=== PATIENT | female | born 1965 | race Caucasian/White ===

== ENCOUNTER 2018-07-02 14:08 | Inpatient (IN) ==
[~2018-07-02 14:08] MED LIST: *HR* Etomidate 20 MG/10 ML AMPUL IVP ONE; *HR* Midazolam HCl 5 MG/5 ML VIAL IVP ONE
[2018-07-02] MEDS ORDERED: 0.9 % Sodium Chloride 1,000 ML IVC ONE ×2 (14:34→15:38)
[2018-07-02] MEDS ORDERED: *HR* FentaNYL (PF) 100 MCG/2 ML VIAL IVP ONE ×2 (14:34→19:22)
[2018-07-02] MEDS ORDERED: Isovue-370 500 ML INFUS..BTL IV ONE ×2 (14:35→18:06)
[2018-07-02 14:56] LABS: Basophils % 0.2 %; Hematocrit 43.6 % (35.3-44.9); Hemoglobin 14.7 g/dL (11.5-15.4); Immature Granulocytes % 1.3 % (0-4); Lymphocytes # 0.6 K/mcL (0.6-4.6); Lymphocytes % 2.6 %; Mean Corpuscular HGB Conc 33.7 g/dL (31.6-35.5); Mean Corpuscular Hemoglobin 29.7 pg (28.0-33.3); Mean Corpuscular Volume 88.1 fL (83.0-100.0); Mean Platelet Volume 10.6 fL (9.4-12.4); Monocytes # 1.4 K/mcL (0.0-1.3); Monocytes % 6.3 %; Neutrophils # 19.6 K/mcL (1.6-8.9); Platelet Count 241 K/mcL (140-400); Red Blood Count 4.95 M/mcL (3.82-4.97); Red Cell Distribution Width 13.1 % (11.5-14.5); Segmented Neutrophils % 89.6 %
[2018-07-02 15:02] LABS: INR 1.8; Prothrombin Time 20.2 Seconds (9.4-12.1)
[2018-07-02 15:05] LABS: Activated Partial Thrombo Time 30.3 Seconds (26.0-36.0)
[2018-07-02] MEDS ORDERED: Ibuprofen 600 MG TABLET PO ONE (15:05)
[2018-07-02 15:15] LABS: Troponin I < 0.03 ng/mL (< 0.04)
[2018-07-02 15:23] LABS: Alanine Aminotransferase 11 Units/L (7-52); Albumin/Globulin Ratio 1.4 (1.1-2.2); Alkaline Phosphatase 65 Units/L (34-104); Aspartate Amino Transferase 12 Units/L (13-39); BUN/Creatinine Ratio 16 (6-26); Bilirubin,Direct 0.2 mg/dL (0.0-0.2); Bilirubin,Indirect 0.5 mg/dL (0.0-1.2); Bilirubin,Total 0.7 mg/dL (0.3-1.0); Blood Urea Nitrogen 12 mg/dL (6-20); Calcium 9.3 mg/dL (8.6-10.3); Carbon Dioxide 23 mEq/L (23-29); Chloride 99 mEq/L (98-107); Globulin 2.8 g/dL (2.4-3.5); Glucose 199 mg/dL (70-105); Magnesium 1.7 mg/dL (1.6-2.6); Osmolality,Calculated 271 (280-300); Potassium 4.2 mEq/L (3.5-5.1); Sodium 128 mEq/L (136-145); Total Protein 6.8 g/dL (6.4-8.9); eGFR For Non-African Americans > 60 (> 60)
--- NOTE | 2018-07-02 15:24 | Emergency Department Note ---
Disposition Clinical Impression: Pulmonary nodules, Hypophosphatemia, Hyponatremia CAP (community acquired pneumonia) Qualifiers: Laterality: left Lung location: lower lobe of lung Qualified Code(s): J18.1 - Lobar pneumonia, unspecified organism Sepsis Qualifiers: Sepsis type: sepsis due to unspecified organism Qualified Code(s): A41.9 - Sepsis, unspecified organism Disposition: Admitted As Inpatient Condition: Fair Referrals: Jad Rodarte DO [Primary Care Provider] - Time of Disposition: 18:00 Chest Pain HPI - General Chief Complaint: ED Chest Pain Stated Complaint: Chest pain; SUSY Time Seen by Provider: 07/02/18 14:20 Source: patient Mode of arrival: ambulatory Limitations: no limitations Vital Signs Reviewed: Yes Nursing Notes Reviewed: Yes - History of Present Illness HPI Narrative: 52-year-old female history of COPD presents to the emergency department via EMS for chest pain and dyspnea. Patient states over the past 24 hours she is been experiencing severe chest pain that also affects her back and her abdomen. She reports a recent fall and was diagnosed with a possible rib injury. She was seen and evaluated here in the emergency department without any imaging or findings concerning for fracture. Complains of a sharp pain in the left chest wall with racing of the heart. Denies any lightheadedness or syncope. Associated shortness of breath nausea no vomiting. She also has a productive yellow cough over the past week. She denies any diaphoresis. No history of cardiac ischemic disease. Patient was immediately evaluated in the trauma resuscitation bay as she was significantly tachycardic 150s. It appears to be sinus tachycardia. She meets SIRS criteria, sepsis workup initiated. Pt complaint: chest pain Severity scale (1-10): 7 - Related Data Previous Rx's Medication Instructions Recorded Gentamicin OPTH Soln 2 drop BOTH EYES QID 5 Days bottle 06/19/15 Allergies Allergy/AdvReac Type Severity Reaction Status Date / Time aspirin [ASA] AdvReac Hives Verified 07/02/18 14:13 caffeine AdvReac Fever Verified 07/02/18 14:13 All systems ED: reviewed and negative except as stated. Review of Systems: As Per HPI Constitutional: Reports: fever. Denies: chills, weakness ENT ED: Denies: congestion Cardiovascular: Reports: chest pain, palpitations, dyspnea on exertion Respiratory: Reports: cough, dyspnea Gastrointestinal: Denies: abdominal pain, nausea, vomiting Genitourinary: Denies: dysuria Musculoskeletal: Reports: back pain Integumentary: Denies: rash, abrasion Neurological: Denies: headache Psychiatric: Reports: anxiety. Denies: depression Chest Pain PMH - Past Medical History Medical history: Reports: COPD, fibromyalgia, other Surgical history: Reports: no surgical history Psychiatric history: Reports: no psych history [employer] history: Reports: bilateral tubal ligation - Social History Smoking Status: Current every day smoker Alcohol use: Reports: none Drug use: Reports: none Physical Exam - General Limitations: no limitations General appearance: alert, anxious - Head Head exam: atraumatic, normocephalic, normal inspection - Eye Eye exam: Present: normal appearance, PERRL, EOMI - ENT ENT exam: normal exam, normal oropharynx, mucous membranes moist - Neck Neck exam: Present: normal inspection, full ROM, trachea midline - Chest Chest inspection: Present: normal inspection, symmetric chest wall rise, tenderness (Left chest wall) - Respiratory Respiratory exam: Present: respiratory distress - Expanded Respiratory Exam Location: rales: Left, rhonchi: Left - Cardiovascular Cardiovascular exam: Present: normal rhythm, tachycardia, normal heart sounds. Absent: systolic murmur, diastolic murmur - Expanded Cardiovascular Exam Peripheral pulses: 2+: radial (R), radial (L) - Abdominal Exam Abdominal exam: Present: soft, Non-Tender, normal bowel sounds. Absent: te nderness, distention, guarding, rebound, rigidity - Extremities Exam Extremities exam: Present: normal inspection, full ROM, normal capillary refill. Absent: tenderness, pedal edema - Back Exam Back exam: Present: normal inspection, full ROM. Absent: tenderness - Neurological Exam Neurological exam: Present: alert, oriented X3 - Psychiatric Psychiatric exam: Present: normal affect, anxious - Skin Skin exam: Present: warm, dry, intact, normal color. Absent: rash, cyanosis, diaphoresis Course Course Narrative: Patient reports left chest pain with productive cough and shortness of breath over the past week. She is significantly tachycardic and mildly hypoxic. EKG shows sinus tachycardia. She has crackles to the left lung field. Concern for sepsis likely pneumonia. Sepsis workup initiated. Given the significant tachycardia will also obtain CTA chest for evaluation for pulm embolism. - Reevaluation(s) Reevaluation #1: Patient has significant leukocytosis. Chest x-ray shows opacities in the left upper lobe concerning for pneumonia versus cancer. Patient has a history of smoking and recently has come down. Her lactate is normal 1.4. Patient does not meet severe sepsis or septic shock. She has been fluid resuscitated with 1 L normal saline. She has some electrolyte abnormalities including sodium 128 and phosphorus of 1. Will replete her phosphorous IV. Her CT scan of the chest did not reveal pulmonary embolism and confirmed left upper lobe pneumonia. She also has pulmonary nodules and thyroid nodule that patient has been made aware of. Will treat her for community acquired pneumonia with azithromycin and ceftriaxone. Impression is hyponatremia, hypophosphotemia, sepsis secondary to community acquired pneumonia Reevaluation #2: Patient initially had describes some pruritus. The azithromycin infusion was stopped. She then gradually developed hives. She is now complaining of some difficulty in breathing. Her blood pressure has come down to systolic 90s. Concerning for anaphylactic shock patient will be continued on IV fluids and administered IM epinephrine. Her allergies include aspirin and caffeine. She did admit to taking ibuprofen prior to arrival here. No other drug administration given. Time: 19:06 - Consultations Consultation #1: Spoke with on-call hospitalist kar Pruitt to admit for sepsis secondary to community acquired pneumonia, hypophosphatemia and hyponatremia. No further orders at this time Time: 18:00 Vital Signs Temperature 99.9 F H 07/02/18 14:11 Pulse Rate 151 07/02/18 14:11 Respiratory Rate 22 07/02/18 14:11 Blood Pressure 110/71 07/02/18 14:11 O2 Sat by Pulse Oximetry 94 07/02/18 14:11 Temperature 98.2 F 07/02/18 17:46 Pulse Rate 118 07/02/18 19:27 Respiratory Rate 22 07/02/18 19:27 Blood Pressure 99/58 07/02/18 19:27 O2 Sat by Pulse Oximetry 96 07/02/18 19:27 Oxygen Delivery Oxygen Delivery Nasal Cannula Chest Pain - MDM Narrative Medical decision making narrative: Patient was discussed with my attending physician who agrees with ED management and final disposition. They independently evaluated the patient. Please refer to their attestation to this encounter for additional information. This note was generated by [employer] voice recognition software and as a result grammatical or spelling errors may occur using this program. - Medical Records Medical records reviewed: Yes I reviewed the patient's medical records. - Lab Data Lab results reviewed: Yes I reviewed the patient's lab results. Result diagrams: 07/02/18 14:42 07/02/18 14:42 Lab Results 07/02/18 07/02/18 07/02/18 Range/Units 14:29 14:42 14:42 WBC 21.9 H (4.3-11.1) K/mcL RBC 4.95 (3.82-4.97) M/mcL Hgb 14.7 (11.5-15.4) g/dL Hct 43.6 (35.3-44.9) % MCV 88.1 (83.0-100.0) fL MCH 29.7 (28.0-33.3) pg MCHC 33.7 (31.6-35.5) g/dL RDW 13.1 (11.5-14.5) % Plt Count 241 (140-400) K/mcL MPV 10.6 (9.4-12.4) fL Immature Gran % 1.3 (0-4) % Seg Neutrophils % 89.6 % Lymphocytes % 2.6 % Monocytes % 6.3 % Eosinophils % 0.0 % Basophils % 0.2 % Neutrophils # 19.6 H (1.6-8.9) K/mcL Lymphocytes # 0.6 (0.6-4.6) K/mcL Monocytes # 1.4 H (0.0-1.3) K/mcL Eosinophils # 0.0 (0.0-0.6) K/mcL Basophils # 0.0 (0.0-0.2) K/mcL PT 20.2 H (9.4-12.1) Seconds INR 1.8 APTT 30.3 (26.0-36.0) Seconds Sodium (136-145) mEq/L Potassium (3.5-5.1) mEq/L Chloride (98-107) mEq/L Carbon Dioxide (23-29) mEq/L BUN (6-20) mg/dL Creatinine (0.60-1.20) mg/dL Est GFR ( Amer) (> 60) Est GFR (Non-Af Amer) (> 60) BUN/Creatinine Ratio (6-26) Glucose (70-105) mg/dL Calculated Osmolality (280-300) Lactic Acid (0.5-2.2) mmol/L Calcium (8.6-10.3) mg/dL Phosphorus (2.7-4.5) mg/dL Magnesium (1.6-2.6) mg/dL Total Bilirubin (0.3-1.0) mg/dL Direct Bilirubin (0.0-0.2) mg/dL Indirect Bilirubin (0.0-1.2) mg/dL AST (13-39) Units/L ALT (7-52) Units/L Alkaline Phosphatase (34-104) Units/L Troponin I (< 0.04) ng/mL Serum Total Protein (6.4-8.9) g/dL Albumin (3.5-5.7) g/dL Globulin (2.4-3.5) g/dL Albumin/Globulin Ratio (1.1-2.2) Urine Color Dark Yellow (Yellow) Urine Clarity Clear (Clear) Urine pH 6.0 (5.0-8.0) pH Units Ur Specific [place] > 1.030 H (1.010-1.025) Urine Protein 30 H (Neg-Trace) mg/dL Urine Glucose (UA) 250 H (Normal) mg/dL Urine Ketones Trace H (Negative) mg/dL Urine Blood Moderate H (Negative) Urine Nitrite Negative (Negative) Urine Bilirubin Negative (Negative) Urine Urobilinogen Normal (Normal) mg/dL Ur Leukocyte Esterase Negative (Negative) Urine Microscopic RBC 15-30 H (0-3) per hpf Urine Microscopic WBC 0-3 (0-3) per hpf Ur Squamous Epith Cells Many H (None-Few) per lpf Urine Bacteria None Seen (None-Few) per hpf Hyaline Casts None Seen (None-Few) per lpf Ur Culture Indicated? NO (NO) 07/02/18 07/02/18 Range/Units 14:42 14:42 WBC (4.3-11.1) K/mcL RBC (3.82-4.97) M/mcL Hgb (11.5-15.4) g/dL Hct (35.3-44.9) % MCV (83.0-100.0) fL MCH (28.0-33.3) pg MCHC (31.6-35.5) g/dL RDW (11.5-14.5) % Plt Count (140-400) K/mcL MPV (9.4-12.4) fL Immature Gran % (0-4) % Seg Neutrophils % % Lymphocytes % % Monocytes % % Eosinophils % % Basophils % % Neutrophils # (1.6-8.9) K/mcL Lymphocytes # (0.6-4.6) K/mcL Monocytes # (0.0-1.3) K/mcL Eosinophils # (0.0-0.6) K/mcL Basophils # (0.0-0.2) K/mcL PT (9.4-12.1) Seconds INR APTT (26.0-36.0) Seconds Sodium 128 L (136-145) mEq/L Potassium 4.2 (3.5-5.1) mEq/L Chloride 99 (98-107) mEq/L Carbon Dioxide 23 (23-29) mEq/L BUN 12 (6-20) mg/dL Creatinine 0.74 (0.60-1.20) mg/dL Est GFR ( Amer) > 60 (> 60) Est GFR (Non-Af Amer) > 60 (> 60) BUN/Creatinine Ratio 16 (6-26) Glucose 199 H (70-105) mg/dL Calculated Osmolality 271 L (280-300) Lactic Acid 1.4 (0.5-2.2) mmol/L Calcium 9.3 (8.6-10.3) mg/dL Phosphorus 1.0 L* (2.7-4.5) mg/dL Magnesium 1.7 (1.6-2.6) mg/dL Total Bilirubin 0.7 (0.3-1.0) mg/dL Direct Bilirubin 0.2 (0.0-0.2) mg/dL Indirect Bilirubin 0.5 (0.0-1.2) mg/dL AST 12 L (13-39) Units/L ALT 11 (7-52) Units/L Alkaline Phosphatase 65 (34-104) Units/L Troponin I < 0.03 (< 0.04) ng/mL Serum Total Protein 6.8 (6.4-8.9) g/dL Albumin 4.0 (3.5-5.7) g/dL Globulin 2.8 (2.4-3.5) g/dL Albumin/Globulin Ratio 1.4 (1.1-2.2) Urine Color (Yellow) Urine Clarity (Clear) Urine pH (5.0-8.0) pH Units Ur Specific [place] (1.010-1.025) Urine Protein (Neg-Trace) mg/dL Urine Glucose (UA) (Normal) mg/dL Urine Ketones (Negative) mg/dL Urine Blood (Negative) Urine Nitrite (Negative) Urine Bilirubin (Negative) Urine Urobilinogen (Normal) mg/dL Ur Leukocyte Esterase (Negative) Urine Microscopic RBC (0-3) per hpf Urine Microscopic WBC (0-3) per hpf Ur Squamous Epith Cells (None-Few) per lpf Urine Bacteria (None-Few) per hpf Hyaline Casts (None-Few) per lpf Ur Culture Indicated? (NO) - Radiology Data Radiology results reviewed: Yes I reviewed the patient's radiology results. Chest X-Ray 07/02/18 14:29 IMPRESSION: Extensive new pulmonary opacity along the left aspect of the mediastinum within the left upper lobe and left lower lobe. There is also left perihilar component. This may represent pneumonia, although, underlying malignancy is not excluded. Recommend further evaluation with a CT chest with contrast. D/ / 07/02/2018 15:39:18 Bin Arango MD / gabe Interpreting Provider: Bin Arango MD Chest CTA 07/02/18 14:35 IMPRESSION: No convincing evidence for central pulmonary embolism. Diffuse airspace disease within the left upper lobe most compatible with an acute infectious or inflammatory process. Multiple pulmonary nodules, the largest of which measures 1 cm within the left lower lobe. Follow-up CT in 2-3 months recommended to evaluate for resolution of airspace disease and to revaluate multiple pulmonary nodules. Subcentimeter incidental thyroid nodule No follow-up imaging is recommended. Reference: J Am Yvonne Radiol. 2015 Aug;12(2): 143-50 D/ / Wale Davis MD / Wale Davis MD Interpreting Provider: Wale Davis MD - EKG Data EKG attestation: Yes I reviewed and interpreted this EKG. EKG results narrative: EKG performed 1427 sinus tachycardia 156 beats per minute, normal axis, good R wave progression, no ST elevation or depression, no T-wave version. There is no old EKG available for comparison at this time. No acute ischemic changes. Heart Score - Score History: Slightly Suspicious EKG: Normal Age: 45-65 Risk Factors: 1-2 risk factors Troponin: Less than normal limit HEART Score Total: 2 Critical Care Time Critical Care Time: Yes Total Critical Care Time: 40 Attestation: The high probability of a clinically significant, sudden or life threatening deterioration of the cardiovascular and respiratory system(s) required my full and direct attention, intervention and personal management. The aggregate critical care time was 40 minutes. This time is in addition to time spent performing reported procedures but includes the following: x Data Review and interpretation x Patient assessment and monitoring of vital signs x Documentation x Medication orders and management Attestation Statement - Attestation Attestation: I, Raoul Jonas, examined this patient and my medical decision-making was reviewed with the GRIEVANCE MANAGER/PA/Advanced Practice Nurse/Resident Physician. I agree with the documented findings, disposition and treatment plan as described except to the extent set forth below. 52-year-old female presents emergency Department with concerns of chest pain and difficulty breathing. Patient states she fell about 2 weeks ago, within the past 24 hours she has developed increasing cough productive of yellow-green sputum, fever, tachycardia and pain with breathing. No history of PE or DVT in the past. No history of leg swelling. Patient is not immunocompromise. Chest x-ray shows left upper lobe pneumonia. CTA of the chest to rule out PE did not show evidence of acute PE, she had multiple nodules which will need reevaluation in the future. CT of the chest also showed a left upper lobe pneumonia. She was given ceftriaxone and azithromycin in the emergency department. Heart rate improved with pain control and IV fluids.
[2018-07-02] MEDS ORDERED: Piperacillin/Tazobactam 3.375 GM in 0.9 % Sodium Chloride Mini Bag 100 ML IVPB ONE (15:39)
[2018-07-02] MEDS ORDERED: cefTRIAXone 1,000 MG in Water for inj. (sterile) 20 ML 10 ML IVP ONE (16:56)
[2018-07-02] MEDS ORDERED: Azithromycin 500 MG in D5% in Water 250 ML IVPB STA (16:56)
[2018-07-02 17:18] LABS: Bilirubin,Urine Negative (Negative); Blood,Urine Moderate (Negative); Clarity,Urine Clear (Clear); Color,Urine Dark Yellow (Yellow); Glucose,Urine (UA) 250 mg/dL (Normal); Ketones,Urine Trace mg/dL (Negative); Leukocyte Esterase,Urine Negative (Negative); Nitrite,Urine Negative (Negative); Protein,Urine 30 mg/dL (Neg-Trace); Specific Gravity,Urine > 1.030 (1.010-1.025); Urobilinogen,Urine Normal (Normal)
[2018-07-02 17:19] LABS: Bacteria,Urine None Seen per hpf (None-Few); Hyaline Casts,Urine None Seen per lpf (None-Few); RBC,Urine 15-30 per hpf (0-3); Squamous Epithelial Cell,Urine Many per lpf (None-Few); WBC,Urine 0-3 per hpf (0-3)
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
[2018-07-02] MEDS ORDERED: Naloxone 0.4 MG/ML INJ IVP PRN (18:07)
[2018-07-02] MEDS ORDERED: Acetaminophen 325 MG TABLET PO PRN ×2 (18:11→22:53)
[2018-07-02] MEDS: *HR* Morphine 2 MG/ML SYRINGE IVP ONE ×2 (18:42→19:40)
[2018-07-02] MEDS ORDERED: *HR* EPINEPHrine 1 MG/ML AMPUL IM ONE (19:06)
[2018-07-02] MEDS ORDERED: Famotidine 20 MG/2 ML VIAL IVP ONE (19:06)
[2018-07-02] MEDS ORDERED: methylPREDNISolone 125 MG/2 ML VIAL IVP ONE (19:06)
[2018-07-02] MEDS ORDERED: *HR* EPINEPHrine 1 MG/ML AMPUL ONE (19:07)
[2018-07-02] MEDS: 0.9 % Sodium Chloride 1,000 ML IVC SCH (19:25)
[2018-07-02] MEDS: Ketorolac 30 MG/ML VIAL IVP PRN (21:03)
[2018-07-02] MEDS: *HR* Heparin 5,000 UNIT/ML VIAL SQ SCH (21:04)
[2018-07-02] MEDS ORDERED: Levalbuterol Neb 1.25 MG/3 ML ONE (23:10)
[2018-07-02] MEDS: Levalbuterol Neb 1.25 MG/3 ML IH ONE (23:11)
[2018-07-03 01:32] LABS: ABG Base Excess -9 mEq/L (-2 to 3); ABG HCO3 17 mEq/L (21-27); ABG Oxygen Saturation 92 % (95-98); ABG PCO2 38 mmHg (35-45); ABG PH 7.27 pH Units (7.32-7.45); ABG PO2 71 mmHg (85-104); ABG TCO2 19 mEq/L (20-26)
[2018-07-03] MEDS ORDERED: methylPREDNISolone 125 MG/2 ML VIAL IVP ONE (01:37)
[2018-07-03] MEDS ORDERED: *HR* LORazepam 2 MG/ML VIAL IVP ONE ×3 (01:39→20:35)
[2018-07-03] MEDS ORDERED: Benzonatate 100 MG CAPSULE PO PRN (01:50)
[2018-07-03 01:53] LABS: Adenovirus Not Detected (Not Detect); Bordetella Pertussis Not Detected (Not Detect); Chlamydophila pneumoniae Not Detected (Not Detect); Coronavirus 229E Not Detected (Not Detect); Coronavirus HKU1 Not Detected (Not Detect); Coronavirus NL63 Not Detected (Not Detect); Coronavirus OC43 Not Detected (Not Detect); Human Metapneumovirus Not Detected (Not Detect); Human Rhinovirus/Enterovirus Not Detected (Not Detect); Influenza A Subtype 2009 H1 Not Detected (Not Detect); Influenza A Untypeable Not Detected (Not Detect); Influenza B Not Detected (Not Detect); Mycoplasma pneumoniae Not Detected (Not Detect); Parainfluenza Virus 1 Not Detected (Not Detect); Parainfluenza Virus 2 Not Detected (Not Detect); Parainfluenza Virus 3 Not Detected (Not Detect); Parainfluenza Virus 4 Not Detected (Not Detect); Respiratory Syncytial Virus Not Detected (Not Detect)
[2018-07-03 01:54] LABS: Hematocrit 45.1 % (35.3-44.9); Hemoglobin 14.9 g/dL (11.5-15.4); Mean Corpuscular Hemoglobin 29.6 pg (28.0-33.3); Mean Corpuscular Volume 89.5 fL (83.0-100.0); Mean Platelet Volume 10.9 fL (9.4-12.4); Platelet Count 213 K/mcL (140-400); Red Blood Count 5.04 M/mcL (3.82-4.97); Red Cell Distribution Width 13.2 % (11.5-14.5)
[2018-07-03 02:15] LABS: BUN/Creatinine Ratio 18 (6-26); Blood Urea Nitrogen 12 mg/dL (6-20); Calcium 7.7 mg/dL (8.6-10.3); Carbon Dioxide 16 mEq/L (23-29); Chloride 110 mEq/L (98-107); Glucose 130 mg/dL (70-105); Osmolality,Calculated 286 (280-300); Phosphorous 3.3 mg/dL (2.7-4.5); Potassium 3.5 mEq/L (3.5-5.1); Sodium 137 mEq/L (136-145); eGFR For Non-African Americans > 60 (> 60)
[2018-07-03 03:46] LABS: Large Platelets Present (Not Present); Lymphocytes # 0.6 K/mcL (0.6-4.6); Monocytes # 0.4 K/mcL (0.0-1.3); Neutrophils # 5.1 K/mcL (1.6-8.9); Platelet Estimate Normal (Normal)
[2018-07-03 03:47] LABS: Reactive Lymphocytes Present (Not Present)
--- NOTE | 2018-07-03 04:20 | Event Note ---
Addendum entered and electronically signed by Rudi Cook 07/03/18 06:15: Nurse notes that she found patient using her home albuterol inhaler when she walked into the room. States that she has been using it throughout the night. Patient was advised against using home meds while in the hospital. Possible explanation for patient's continuing tachycardia. Original Note: Date of Encounter: 07/03/18 Time of Encounter: 04:03 Per nurse, pt complaining of difficulty breathing, rib pain, anxiety. Pt noted to be tachycardic to 120s-130s, with BP 95/66 with O2 sats on 5L NC in the mid 90s. Examined patient and noted shallow breathing, diffuse wheezing with moderate crackles b/l. Pt was in moderate distress secondary to pain. Pt was s/p fentanyl, toradol, tylenol, ibuprofen for pain, and given solumedrol 125mg to help with respiratory distress. Respiratory was consulted who suggested giving dose of xopenex, which pt noted to alleviate symptoms temporarily. However, after 2 hours, was again called to bedside with patient having difficulty breathing. After discussion with WAQAR Hoskins, obtained ABG, Lactic Acid, and consulted respiratory for trial of BIPAP. ABG findings suggested likely metabolic acidosis which would not benefit greatly from BIPAP. Lactic Acid = 2.4. Pt was given 60mg Solumedrol, 0.5mg Ativan IVP, and benzonatate. O2 was switched from nasal cannula to venti mask. Duonebs was held due to tachycardia. Dose of metoprolol held due low BP. Pt did not tolerate venti mask, and again switched to nasal cannula. Pt currently resting in mild distress on 5L O2 via NC. O2 sats in the mid 90s currently.
[2018-07-03] MEDS: cefTRIAXone 2,000 MG in Water for inj. (sterile) 20 ML 20 ML IVP SCH (04:40)
[2018-07-03] MEDS: 0.9 % Sodium Chloride 1,000 ML IVC SCH (04:40)
[2018-07-03] MEDS: *HR* Heparin 5,000 UNIT/ML VIAL SQ SCH ×3 (04:41→21:11)
[2018-07-03] MEDS ORDERED: Levalbuterol Neb 1.25 MG/3 ML ONE (07:29)
[2018-07-03] MEDS: Levalbuterol Neb 1.25 MG/3 ML IH ONE (07:30)
[2018-07-03] MEDS: Nicotine 21 MG PATCH.TD24 TD SCH (07:43)
[2018-07-03] MEDS: Ketorolac 30 MG/ML VIAL IVP PRN (07:43)
[2018-07-03] MEDS: Pregabalin 75 MG CAPSULE PO SCH ×2 (07:43→21:08)
--- NOTE | 2018-07-03 08:10 | Internal Med Progress Note ---
Hospitalist Progress Note - Encounter Date of Encounter: 07/03/18 Time of Encounter: 11:00 - Subjective Interval History: Patient presented with a 2 day history of rib pain with cough and shortness of breath and found to have sepsis secondary to pneumonia with imaging revealing left upper lobe/left lower lobe infiltrate. Patient with no improvement overnight with shortness of breath or rib plain and ABG was ordered overnight which revealed a pH of 7.27, PCO2 38 and PaO2 of 71; she required increased oxygen supplementation at 5 L nasal cannula and remained tachycardic. On morning rounds, patient's O2 supplementation had been decreased to 2 L still complaining of rib pain, shortness of breath and remained tachycardic; CT angiogram of the chest on admission negative for pulmonary embolism Repeat chest x-ray this morning showed worsening left lung infiltrate since prior study on 07/02/18 which could reflect pneumonia versus hemorrhage given rapid interval change; pulmonology has been consulted - Exam Vitals: Temp Pulse Resp BP Pulse Ox 97.8 F 131 22 116/72 91 07/03/18 07:39 07/03/18 07:39 07/03/18 07:39 07/03/18 07:39 07/03/18 07:39 Exam: Gen.: Mild distress, alert and oriented 3 ENT: Mucosal membranes moist Respiratory: Lungs are clear to auscultation bilaterally without any wheezing rhonchi or rales Cardiovascular: Normal S1 and S2 without any murmurs rubs or gallops; tachycardic Abdomen: Soft, nontender and nondistended with positive bowel sounds Extremities: No lower extremity edema Skin: Normal color - Assessment and Plan (1) Acute respiratory failure with hypoxia Current Visit: Yes Status: Acute Assessment and Plan: Patient with acute hypoxic respiratory failure requiring increased amounts of supplemental oxygenation ABGs taken earlier this morning revealed a pH of 7.27 and a PCO2 of 38 Imaging on 07/02/18 showed opacities along the left upper and left lower lobes. Repeat chest x-ray this morning showed worsening left lung infiltrate since prior study on 07/02/18 which could reflect pneumonia versus hemorrhage given rapid interval change Pulmonology has been consulted and appreciate recommendations (2) CAP (community acquired pneumonia) Current Visit: Yes Status: Acute Assessment and Plan: In the ER, patient found to have leukocytosis with a WBC of 21.9 addition of MAXIMUM TEMPERATURE of 103.2 on admission; patient was also tachycardic and tachypneic. Chest x-ray showed extensive left upper lobe and left lower lobe opacities; repeat x-ray this morning as above Patient's leukocytosis has resolved and she has been afebrile Will continue day 2 of IV azithromycin and ceftriaxone. (3) Sepsis Current Visit: Yes Status: Acute Assessment and Plan: Patient met sirs criteria with leukocytosis (WBC 21.9), MAXIMUM TEMPERATURE 103.2, tachycardia and tachypnea with identified infectious process on chest x- ray. She is leukocytosis has resolved and is now afebrile but continues to be tachycardic with acute hypoxic respiratory failure Continue management as above (4) Tachycardia Current Visit: Yes Status: Acute Assessment and Plan: She has remained tachycardic since admission thought to be secondary to sepsis due to the above CT angiogram of chest without findings for pulmonary embolism Continuing IV fluids (5) Pulmonary nodules Current Visit: Yes Status: Acute Assessment and Plan: Patient also noted to have multiple pulmonary nodules on CTPA Patient with significant medical history of being a 35 pack year smoker She will need to follow-up as an outpatient and to [address] of chest (6) Smoker Current Visit: Yes Status: Acute Assessment and Plan: Patient is a 35 pack year smoker interested in quitting Will offer nicotine replacement (7) Chronic pain Current Visit: Yes Status: Acute Assessment and Plan: Continue patient's home dose of Cymbalta and Mobic in addition to Lyrica (8) DVT prophylaxis Current Visit: Yes Status: Acute Assessment and Plan: Subcutaneous heparin - Time Spent with Patient Total time spent is greater than 50% in coordination of care (as documented) at patient's floor/unit and/or counseling patient: Internal Medicine: Result - Labs CBC & Chem 7: 07/03/18 01:30 07/03/18 01:30 Labs: Short CBC 07/02/18 07/03/18 Range/Units 14:42 01:30 WBC 21.9 H 6.1 D (4.3-11.1) K/mcL Hgb 14.7 14.9 (11.5-15.4) g/dL Hct 43.6 45.1 H (35.3-44.9) % Plt Count 241 213 (140-400) K/mcL Neutrophils # 19.6 H 5.1 (1.6-8.9) K/mcL BMP 07/02/18 07/03/18 14:42 01:30 Sodium 128 L 137 D Potassium 4.2 3.5 Chloride 99 110 H Carbon Dioxide 23 16 L BUN 12 12 Creatinine 0.74 0.67 Glucose 199 H 130 H Calcium 9.3 7.7 L Cardiac Enzymes 07/02/18 Range/Units 14:42 Troponin I < 0.03 (< 0.04) ng/mL Liver Function 07/02/18 Range/Units 14:42 Total Bilirubin 0.7 (0.3-1.0) mg/dL Direct Bilirubin 0.2 (0.0-0.2) mg/dL AST 12 L (13-39) Units/L ALT 11 (7-52) Units/L Alkaline Phosphatase 65 (34-104) Units/L Albumin 4.0 (3.5-5.7) g/dL Urine 07/02/18 Range/Units 14:42 Urine Color Dark Yellow (Yellow) Urine Clarity Clear (Clear) Urine pH 6.0 (5.0-8.0) pH Units Ur Specific [place] > 1.030 H (1.010-1.025) Urine Protein 30 H (Neg-Trace) mg/dL Urine Glucose (UA) 250 H (Normal) mg/dL - ABG Interpretation ABG results: ABG ABG pH 7.27 pH Units (7.32-7.45) L 07/03/18 01:29 ABG pCO2 38 mmHg (35-45) 07/03/18 01:29 ABG pO2 71 mmHg (85-104) L 07/03/18 01:29 ABG O2 Saturation 92 % (95-98) L 07/03/18 01:29 PT/INR, D-dimer PT 20.2 Seconds (9.4-12.1) H 07/02/18 14:29 - Impressions Impressions Chest X-Ray 07/02/18 14:29 IMPRESSION: Extensive new pulmonary opacity along the left aspect of the mediastinum within the left upper lobe and left lower lobe. There is also left perihilar component. This may represent pneumonia, although, underlying malignancy is not excluded. Recommend further evaluation with a CT chest with contrast. D/ / 07/02/2018 15:39:18 Bin Arango MD / gabe Interpreting Provider: Bin Arango MD Chest CTA 07/02/18 14:35 IMPRESSION: No convincing evidence for central pulmonary embolism. Diffuse airspace disease within the left upper lobe most compatible with an acute infectious or inflammatory process. Multiple pulmonary nodules, the largest of which measures 1 cm within the left lower lobe. Follow-up CT in 2-3 months recommended to evaluate for resolution of airspace disease and to revaluate multiple pulmonary nodules. Subcentimeter incidental thyroid nodule No follow-up imaging is recommended. Reference: J Am Yvonne Radiol. 2015 Aug;12(2): 143-50 D/ / Wale Davis MD / Wale Davis MD Interpreting Provider: Wale Davis MD Consult Discharge Plan - Plan Referrals: Jad Rodarte DO [Primary Care Provider] - (2) CAP (community acquired pneumonia) Qualifiers: Laterality: left Lung location: lower lobe of lung Qualified Code(s): J18.1 - Lobar pneumonia, unspecified organism (3) Sepsis Qualifiers: Sepsis type: sepsis due to unspecified organism Qualified Code(s): A41.9 - Sepsis, unspecified organism (7) Chronic pain Qualifiers: Chronic pain type: other chronic pain Qualified Code(s): G89.29 - Other chronic pain
--- NOTE | 2018-07-03 10:35 | Electrocardiograph Report ---
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
[2018-07-03] MEDS ORDERED: *HR* OxyCODONE/APAP 5/325 TABLET PO ONE (11:08)
[2018-07-03] MEDS ORDERED: Levalbuterol Neb 0.63 MG/3 ML IH PRN (11:55)
[2018-07-03] MEDS ORDERED: *HR* LORazepam 0.5 MG TABLET PO ONE (12:36)
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
--- NOTE | 2018-07-03 14:56 | Electrocardiograph Report ---
[address] [address] Test Date: 2018-07-03 Pat Name: Alise Ibrahim Department: 109 Room: 2A24 Gender: F Host/Hostess Ground: : 1965 Requested By: Farrukh Calixto Order Number: [id number] Reading MD: Marcus Tobar Measurements Intervals [place] Rate: 133 P: [place]: 0 QRS: 80 QRSD: 85 T: 60 QT: 332 QTc: 410 Interpretive Statements SINUS TACHYCARDIA NONSPECIFIC T-WAVE ABNORMALITY ABNORMAL RHYTHM ECG V6 ARTIFACT Electronically Signed On 07-03-2018 14:54:28 EST by Marcus Tobar
[2018-07-03] MEDS: MethylPREDNISolone 40 MG/ML VIAL IVP SCH ×2 (15:49→23:30)
[2018-07-03] MEDS ORDERED: Azithromycin 500 MG in D5% in Water 250 ML IVPB SCH (18:00)
[2018-07-03] MEDS: *HR* OxyCODONE/APAP 5/325 TABLET PO PRN (18:08)
[2018-07-03] MEDS ORDERED: 0.9 % Sodium Chloride 1,000 ML IVC ONE (19:50)
[2018-07-03] MEDS ORDERED: 0.9 % Sodium Chloride 1,000 ML ONE (19:52)
[2018-07-03] MEDS ORDERED: *HR* Metoprolol 5 MG/5 ML VIAL IVP ONE ×2 (21:24→22:08)
[2018-07-03] MEDS ORDERED: Dexmedetomidine HCl 400 MCG/100 ML MLS IVC ONE (22:13)
[2018-07-03 22:31] LABS: ABG Base Excess -2 mEq/L (-2 to 3); ABG HCO3 26 mEq/L (21-27); ABG Oxygen Saturation 97 % (95-98); ABG PCO2 53 mmHg (35-45); ABG PH 7.29 pH Units (7.32-7.45); ABG PO2 106 mmHg (85-104); ABG TCO2 27 mEq/L (20-26); Blood Gas Modality BiLevel; Blood Gas PEEP 4 cm H2O
[2018-07-04 00:20] LABS: BUN/Creatinine Ratio 31 (6-26); Blood Urea Nitrogen 19 mg/dL (6-20); Calcium 8.5 mg/dL (8.6-10.3); Carbon Dioxide 22 mEq/L (23-29); Chloride 107 mEq/L (98-107); Glucose 189 mg/dL (70-105); Osmolality,Calculated 285 (280-300); Sodium 134 mEq/L (136-145); eGFR For Non-African Americans > 60 (> 60)
[2018-07-04] MEDS ORDERED: *HR* Midazolam HCl 5 MG/5 ML VIAL IVP ONE ×2 (00:26→23:10)
[2018-07-04] MEDS ORDERED: *HR* Etomidate 20 MG/10 ML AMPUL IVP ONE (00:26)
[2018-07-04] MEDS ORDERED: Artificial Tears SOLN 15 ML BOTTLE BOTH EYES PRN (00:41)
--- NOTE | 2018-07-04 01:02 | Event Note ---
Date of Encounter: 07/03/18 Time of Encounter: 22:00 Was asked to assess the patient on the floor was admitted for pneumonia in the setting of COPD and recent rib fracture. Patient was on BiPAP with a respiratory rate in the 30s. Systolic blood pressure was around 110. Heart rate was in the 180s. She was satting in the mid 90s on 40%. An EKG was performed which showed any irregular rhythm with visible P waves suggestive of multi-atrial tachycardia. Patient was given fluid bolus prior to my arrival due to a systolic blood pressure in the 80s now with improvement in her blood pressure. Patient had received Ativan due to anxiety as she was having difficulty tolerating BiPAP. Given patient's respiratory status and concern th at she would eventually tire out in the setting of her hemodynamic instability, patient was transferred to the ICU. Shortly after arrival patient was reassessed and found to be alert oriented 2. Patient's respiratory rate remained in the low 30s with obvious work of breathing. Heart rate did improve into the 130s. Case was discussed with Dr. Kingston given her tachypnea despite being on BiPAP who recommended starting the patient on Precedex and if her vitals did not improve over the next 10 -15 minutes, to intubate. Precedex was titrated to maximum without improvement in patient's breathing remaining tachypnea And tachycardic in the 130s. Patient was subsequently intubated without complication. Patient was noted to have large amounts of secretions on suctioning by respiratory team. Fentanyl drip was added in addition to her Precedex for help with sedation and pain control. Heart rate and vitals also improved.
[2018-07-04] MEDS: FentaNYL (PF) 1,000 MCG in 0.9 % Sodium Chloride 80 ML IVC SCH ×4 (01:09→21:40)
[2018-07-04 02:55] LABS: ABG Base Excess -2 mEq/L (-2 to 3); ABG HCO3 24 mEq/L (21-27); ABG Oxygen Saturation 98 % (95-98); ABG PCO2 46 mmHg (35-45); ABG PH 7.33 pH Units (7.32-7.45); ABG PO2 111 mmHg (85-104); ABG TCO2 25 mEq/L (20-26); Blood Gas Modality PRVC; Blood Gas PEEP 5 cm H2O; Blood Gas Respiration Rate 16; Blood Gas VT 360 cc
[2018-07-04] MEDS: Levalbuterol Neb 0.63 MG/3 ML IH SCH ×3 (03:10→07:38)
[2018-07-04] MEDS: Dexmedetomidine HCl 400 MCG/100 ML MLS IVC SCH ×5 (03:58→23:00)
[2018-07-04] MEDS: Artificial Tears SOLN 15 ML BOTTLE BOTH EYES SCH ×6 (03:59→23:23)
[2018-07-04] MEDS ORDERED: *HR* Dextrose 50 % in Water (Syg) 50 ML SYRINGE IVP PRN (04:19)
[2018-07-04] MEDS ORDERED: Dextrose Gel 15 GM/37.5 ML TUBE PO PRN ×2 (04:19)
[2018-07-04] MEDS ORDERED: D5% in Water 1,000 ML IVC PRN (04:19)
[2018-07-04 05:04] LABS: Basophils % 0.5 %; Hematocrit 35.3 % (35.3-44.9); Lymphocytes # 0.3 K/mcL (0.6-4.6); Lymphocytes % 3.7 %; Mean Corpuscular HGB Conc 33.4 g/dL (31.6-35.5); Mean Corpuscular Hemoglobin 29.5 pg (28.0-33.3); Mean Corpuscular Volume 88.3 fL (83.0-100.0); Mean Platelet Volume 11.1 fL (9.4-12.4); Monocytes # 0.7 K/mcL (0.0-1.3); Neutrophils # 6.7 K/mcL (1.6-8.9); Platelet Count 193 K/mcL (140-400); Red Cell Distribution Width 13.5 % (11.5-14.5); Segmented Neutrophils % 84.8 %
[2018-07-04 05:13] LABS: Hemoglobin 11.8 g/dL (11.5-15.4)
[2018-07-04 05:17] LABS: BUN/Creatinine Ratio 31 (6-26); Blood Urea Nitrogen 25 mg/dL (6-20); Calcium 8.7 mg/dL (8.6-10.3); Carbon Dioxide 24 mEq/L (23-29); Chloride 107 mEq/L (98-107); Glucose 171 mg/dL (70-105); Osmolality,Calculated 288 (280-300); Potassium 5.4 mEq/L (3.5-5.1); Sodium 135 mEq/L (136-145); eGFR For Non-African Americans > 60 (> 60)
[2018-07-04 05:22] LABS: ABG Base Excess -1 mEq/L (-2 to 3); ABG HCO3 26 mEq/L (21-27); ABG Oxygen Saturation 95 % (95-98); ABG PCO2 53 mmHg (35-45); ABG PO2 83 mmHg (85-104); ABG TCO2 28 mEq/L (20-26); Blood Gas Modality PRVC; Blood Gas PEEP 5 cm H2O; Blood Gas Respiration Rate 16; Blood Gas VT 380 cc
[2018-07-04] MEDS: cefTRIAXone 2,000 MG in Water for inj. (sterile) 20 ML 20 ML IVP SCH (05:25)
[2018-07-04] MEDS: *HR* Heparin 5,000 UNIT/ML VIAL SQ SCH ×3 (05:25→20:13)
[2018-07-04 05:35] LABS: Platelet Estimate Slight Decrease (Normal)
[2018-07-04] MEDS: Pregabalin 75 MG CAPSULE PO SCH ×2 (08:46→20:13)
[2018-07-04] MEDS: Chlorhexidine Rinse 15 ML MOUTHWASH MM SCH ×2 (08:47→20:13)
[2018-07-04] MEDS: MethylPREDNISolone 40 MG/ML VIAL IVP SCH ×3 (08:47→23:23)
[2018-07-04] MEDS: Pantoprazole 40 MG VIAL IVP SCH (08:49)
[2018-07-04] MEDS: Nicotine 21 MG PATCH.TD24 TD SCH (08:49)
[2018-07-04] MEDS: Levofloxacin 750 MG/150 ML 750 MG/150 ML BAG IVPB SCH (08:50)
--- NOTE | 2018-07-04 08:51 | Pulmonology Progress Note ---
<Ness Le - Last Filed: 07/04/18 12:14> Date of Encounter: 07/04/18 Time of Encounter: 08:30 Assessment and Plan (1) Acute respiratory failure with hypoxia Current Visit: Yes Status: Acute Secondary to worsening left-sided pneumonia. Patient is intubated under sedation. Vent settings optimized today. Wean off sedation as able. Also see plan #2. (2) CAP (community acquired pneumonia) Current Visit: Yes Status: Acute Severe community-acquired pneumonia Patient presented with dyspnea, tachypnea, and hypoxia. Possibly secondary to decreased inspiratory effort in setting of reported rib fractures. CXR 07/02 showed left lung pneumonia. CTA chest 07/02 showed diffuse left upper lobe pneumonia CXR 07/03 showed worsening left lung infiltrate Respiratory panel is negative. Nasal MRSA screen is positive. Sputum culture shows MRSA. Blood cultures drawn 07/02 x2 sets are NGTD. Bronchoscopy with BAL today showed mucopurulent secretions throughout tracheobronchial tree. Followup on BAL results. Followup on Legionella/Strep pneumonia antigen results. Discontinue rocephin. Start vancomycin. Continue day 1 of Levaquin. Qualifiers: Laterality: left Lung location: lower lobe of lung Qualified Code(s): J18.1 - Lobar pneumonia, unspecified organism (3) COPD exacerbation Current Visit: Yes Status: Acute History of COPD. Lifelong smoker. Continue breathing treatments. Continue day 2 of Solu-Medrol IV 60 mg every 8 hours Continue antimicrobials (4) Sepsis Current Visit: Yes Status: Resolved On presentation, patient was febrile, tachycardic, and tachypneic. Leukocytosis of 21.9 with neutrophilic predominance. Lactic acid normal. Secondary to pneumonia. CXR showed new left pneumonia. Fever, tachycardia, and leukocytosis resolved. Sepsis resolved. Qualifiers: Sepsis type: sepsis due to unspecified organism Qualified Code(s): A41.9 - Sepsis, unspecified organism (5) Hypotension Current Visit: Yes Status: Acute Today, hypotensive ~80s/50s. MAP remains >65. Likely secondary to fentanyl and precedex. Wean sedation as able. Consider pressors. Qualifiers: Qualified Code(s): I95.9 - Hypotension, unspecified (6) Hyperkalemia Current Visit: Yes Status: Acute Mild hyperkalemia. Today, potassium level elevated at 5.4. Yesterday, potassium level of 5.0. Possibly secondary to worsening kidney function. Today, Cr of 0.80. Yesterday, Cr of 0.61. Gentle IVF. Recheck potassium level this afternoon. (7) Hyperglycemia Current Visit: Yes Status: Acute No history of diabetes. Yesterday, had 2 glucose readings >200. Low SSI. (8) Pulmonary nodules Current Visit: Yes Status: Acute Current lifelong smoker. CTA chest shows multiple pulmonary nodules in left lower lobe, largest measuring 1cm. Followup CT chest as outpatient in 2-3 months. (9) Smoker Current Visit: Yes Status: Acute Current lifelong smoker. Tobacco abuse counseling education given Nicotine patch. Subjective Interval history: 52 year old female with medical history of COPD and fibromyalgia. Current lifelong smoker. Patient had a fall 2 weeks ago that reportedly resulted in rib fractures. Patient presented for shortness of breath and increased cough with yellow sputum for 1 week. On presentation, patient was tachycardic, tachypneic, and hypoxic. CTA chest showed KIRA pneumonia. Bipap was started with Ativan due to difficulty tolerating bipap. Still in respiratory distress, and patient was transferred to ICU. Tachycardia and tachypnea did not improve despite precedex, and patient was intubated. Patient seen and examined. Patient is intubated under sedation. Patient cannot provide any history or ROS. Objective PUL Vital signs: Last Vital Signs Temp 98.8 F 07/04/18 07:10 Pulse 88 07/04/18 07:00 Resp 22 07/04/18 07:37 BP 77/47 07/04/18 07:37 Pulse Ox 98 07/04/18 07:37 General appearance: no acute distress, other (under sedation) Eyes: nonicteric Neck: supple Effort: normal Auscultation: right: wheezes (Mild end-expiratory wheezing on right lung ), bilateral: clear, rales (bilateral expiratory crackles ) Cardiovascular: regular rate and rhythm Gastrointestinal: normoactive bowel sounds, soft, non-tender Integumentary: normal Extremities: no cyanosis, no edema, no clubbing, pink and warm unable to assess due to mental status Ventilator Settings Ventilator Settings: Ventilator Settings, Last 8 Hours Ventilator Tidal Volume 450 Setting Ventilator Tidal Volume 380 Setting Ventilator Tidal Volume 380 Setting Ventilator Tidal Volume 380 Setting Ventilator Tidal Volume 380 Setting Ventilator Tidal Volume 380 Setting Ventilator Tidal Volume 360 Setting Ventilator Tidal Volume 360 Setting Ventilator Tidal Volume 360 Setting Ventilator Tidal Volume 360 Setting Ventilator Tidal Volume 360 Setting Ventilator Tidal Volume 360 Setting Ventilator Respiratory Rate 10 Setting Ventilator Respiratory Rate 16 Setting Ventilator Respiratory Rate 16 Setting Ventilator Respiratory Rate 16 Setting Ventilator Respiratory Rate 16 Setting Ventilator Respiratory Rate 16 Setting Ventilator Respiratory Rate 12 Setting Ventilator Respiratory Rate 16 Setting Ventilator Respiratory Rate 12 Setting Ventilator Respiratory Rate 16 Setting Ventilator Respiratory Rate 12 Setting Ventilator Respiratory Rate 12 Setting Actual Respiratory Rate 22 Actual Respiratory Rate 22 Actual Respiratory Rate 26 Actual Respiratory Rate 22 Actual Respiratory Rate 22 Actual Respiratory Rate 33 Actual Respiratory Rate 30 Actual Respiratory Rate 23 Actual Respiratory Rate 25 Actual Respiratory Rate 23 Positive End Expiratory 5 Pressure Positive End Expiratory 5 Pressure Positive End Expiratory 5 Pressure Positive End Expiratory 5 Pressure Positive End Expiratory 5 Pressure Positive End Expiratory 5 Pressure Positive End Expiratory 5 Pressure Positive End Expiratory 5 Pressure Positive End Expiratory 5 Pressure Positive End Expiratory 5 Pressure Positive End Expiratory 5 Pressure Positive End Expiratory 5 Pressure Peak Inspiratory Airway 31 Pressure Peak Inspiratory Airway 26 Pressure Peak Inspiratory Airway 21 Pressure Peak Inspiratory Airway 26 Pressure Peak Inspiratory Airway 17 Pressure Peak Inspiratory Airway 11 Pressure Peak Inspiratory Airway 25 Pressure Peak Inspiratory Airway 31 Pressure Peak Inspiratory Airway 32 Pressure Peak Inspiratory Airway 34 Pressure Results - Laboratory Findings CBC and BMP: 07/04/18 04:20 07/04/18 04:40 ABG ABG pH 7.30 pH Units (7.32-7.45) L 07/04/18 05:06 ABG pCO2 53 mmHg (35-45) H 07/04/18 05:06 ABG pO2 83 mmHg (85-104) L 07/04/18 05:06 ABG O2 Saturation 95 % (95-98) 07/04/18 05:06 PT/INR, D-dimer PT 20.2 Seconds (9.4-12.1) H 07/02/18 14:29 Abnormal lab findings: Abnormal lab results Band Neutrophils % 26.0 % (0-4) H 07/03/18 01:30 Lymphocytes # 0.3 K/mcL (0.6-4.6) L 07/04/18 04:20 Reactive Lymphocytes Present (Not Present) A 07/03/18 01:30 Platelet Estimate Slight Decrease (Normal) L 07/04/18 04:20 Large Platelets Present (Not Present) A 07/03/18 01:30 PT 20.2 Seconds (9.4-12.1) H 07/02/18 14:29 ABG pH 7.30 pH Units (7.32-7.45) L 07/04/18 05:06 ABG pCO2 53 mmHg (35-45) H 07/04/18 05:06 ABG pO2 83 mmHg (85-104) L 07/04/18 05:06 ABG Total CO2 28 mEq/L (20-26) H 07/04/18 05:06 Sodium 135 mEq/L (136-145) L 07/04/18 04:40 Potassium 5.4 mEq/L (3.5-5.1) H 07/04/18 04:40 BUN 25 mg/dL (6-20) H 07/04/18 04:40 BUN/Creatinine Ratio 31 (6-26) H 07/04/18 04:40 Glucose 171 mg/dL (70-105) H 07/04/18 04:40 POC Glucose 180 mg/dL (70-99) H 07/03/18 22:00 AST 12 Units/L (13-39) L 07/02/18 14:42 Ur Specific [place] > 1.030 (1.010-1.025) H 07/02/18 14:42 Urine Protein 30 mg/dL (Neg-Trace) H 07/02/18 14:42 Urine Glucose (UA) 250 mg/dL (Normal) H 07/02/18 14:42 Urine Ketones Trace mg/dL (Negative) H 07/02/18 14:42 Urine Blood Moderate (Negative) H 07/02/18 14:42 Urine Microscopic RBC 15-30 per hpf (0-3) H 07/02/18 14:42 Ur Squamous Epith Cells Many per lpf (None-Few) H 07/02/18 14:42 - Microbiology Findings Microbiology Findings: Microbiology, Last 48 Hours 07/02/18 00:45 Sputum Culture - Preliminary Sputum Staphylococcus aureus 07/02/18 14:42 Blood Culture - Preliminary Peripheral Venipuncture Culture is incubating and being continuously monitored for growth. Final report to follow. 07/02/18 14:39 Blood Culture - Preliminary Peripheral Venipuncture Culture is incubating and being continuously monitored for growth. Final report to follow. - Clinical Findings Intake & Output: Intake & Output 07/03/18 07/04/18 07/04/18 23:59 07:59 15:59 Intake Total 1000 / 1000 Output Total 250 / 250 450 / 450 Balance 750 / 750 -450 / -450 Consult Discharge Plan - Plan Referrals: Jad Rodarte DO [Primary Care Provider] - <Margaret Tsang - Last Filed: 07/04/18 16:05> Date of Encounter: 07/04/18 Objective PUL Vital signs: Last Vital Signs Temp 98.3 F 07/04/18 15:20 Pulse 77 07/04/18 15:00 Resp 19 07/04/18 15:48 BP 83/51 07/04/18 15:48 Pulse Ox 97 07/04/18 15:48 Ventilator Settings Ventilator Settings: Ventilator Settings, Last 8 Hours Ventilator Tidal Volume 450 Setting Ventilator Tidal Volume 380 Setting Ventilator Tidal Volume 380 Setting Ventilator Tidal Volume 450 Setting Ventilator Tidal Volume 380 Setting Ventilator Tidal Volume 380 Setting Ventilator Tidal Volume 450 Setting Ventilator Tidal Volume 380 Setting Ventilator Tidal Volume 380 Setting Ventilator Tidal Volume 450 Setting Ventilator Tidal Volume 450 Setting Ventilator Tidal Volume 380 Setting Ventilator Respiratory Rate 10 Setting Ventilator Respiratory Rate 16 Setting Ventilator Respiratory Rate 16 Setting Ventilator Respiratory Rate 10 Setting Ventilator Respiratory Rate 16 Setting Ventilator Respiratory Rate 16 Setting Ventilator Respiratory Rate 10 Setting Ventilator Respiratory Rate 16 Setting Ventilator Respiratory Rate 16 Setting Ventilator Respiratory Rate 10 Setting Ventilator Respiratory Rate 10 Setting Ventilator Respiratory Rate 16 Setting Actual Respiratory Rate 17 Actual Respiratory Rate 22 Actual Respiratory Rate 22 Actual Respiratory Rate 18 Actual Respiratory Rate 22 Actual Respiratory Rate 22 Actual Respiratory Rate 18 Actual Respiratory Rate 22 Actual Respiratory Rate 22 Actual Respiratory Rate 19 Actual Respiratory Rate 22 Positive End Expiratory 5 Pressure Positive End Expiratory 5 Pressure Positive End Expiratory 5 Pressure Positive End Expiratory 5 Pressure Positive End Expiratory 5 Pressure Positive End Expiratory 5 Pressure Positive End Expiratory 5 Pressure Positive End Expiratory 5 Pressure Positive End Expiratory 5 Pressure Positive End Expiratory 5 Pressure Positive End Expiratory 5 Pressure Positive End Expiratory 5 Pressure Peak Inspiratory Airway 18 Pressure Peak Inspiratory Airway 26 Pressure Peak Inspiratory Airway 26 Pressure Peak Inspiratory Airway 30 Pressure Peak Inspiratory Airway 26 Pressure Peak Inspiratory Airway 26 Pressure Peak Inspiratory Airway 30 Pressure Peak Inspiratory Airway 26 Pressure Peak Inspiratory Airway 26 Pressure Peak Inspiratory Airway 20 Pressure Peak Inspiratory Airway 26 Pressure Results - Laboratory Findings CBC and BMP: 07/04/18 04:20 07/04/18 04:40 ABG ABG pH 7.33 pH Units (7.32-7.45) 07/04/18 09:04 ABG pCO2 51 mmHg (35-45) H 07/04/18 09:04 ABG pO2 97 mmHg (85-104) 07/04/18 09:04 ABG O2 Saturation 97 % (95-98) 07/04/18 09:04 PT/INR, D-dimer PT 20.2 Seconds (9.4-12.1) H 07/02/18 14:29 Abnormal lab findings: Abnormal lab results Band Neutrophils % 26.0 % (0-4) H 07/03/18 01:30 Lymphocytes # 0.3 K/mcL (0.6-4.6) L 07/04/18 04:20 Reactive Lymphocytes Present (Not Present) A 07/03/18 01:30 Platelet Estimate Slight Decrease (Normal) L 07/04/18 04:20 Large Platelets Present (Not Present) A 07/03/18 01:30 PT 20.2 Seconds (9.4-12.1) H 07/02/18 14:29 ABG pCO2 51 mmHg (35-45) H 07/04/18 09:04 ABG Total CO2 29 mEq/L (20-26) H 07/04/18 09:04 Sodium 135 mEq/L (136-145) L 07/04/18 04:40 Potassium 5.4 mEq/L (3.5-5.1) H 07/04/18 04:40 BUN 25 mg/dL (6-20) H 07/04/18 04:40 BUN/Creatinine Ratio 31 (6-26) H 07/04/18 04:40 Glucose 171 mg/dL (70-105) H 07/04/18 04:40 POC Glucose 180 mg/dL (70-99) H 07/03/18 22:00 AST 12 Units/L (13-39) L 07/02/18 14:42 Ur Specific [place] > 1.030 (1.010-1.025) H 07/02/18 14:42 Urine Protein 30 mg/dL (Neg-Trace) H 07/02/18 14:42 Urine Glucose (UA) 250 mg/dL (Normal) H 07/02/18 14:42 Urine Ketones Trace mg/dL (Negative) H 07/02/18 14:42 Urine Blood Moderate (Negative) H 07/02/18 14:42 Urine Microscopic RBC 15-30 per hpf (0-3) H 07/02/18 14:42 Ur Squamous Epith Cells Many per lpf (None-Few) H 07/02/18 14:42 Fluid Appearance Cloudy (Clear) A 07/04/18 12:56 Nasal Screen MRSA (PCR) Positive (Negative) A 07/04/18 08:20 - Microbiology Findings Microbiology Findings: Microbiology, Last 48 Hours 07/04/18 12:56 Respiratory Culture - Preliminary Left Lower Lobe Lung 07/03/18 16:59 Legionella Antigen - Final Urine,Clean Catch 07/03/18 16:59 Streptococcus pneumoniae Antigen (M - Final Urine,Clean Catch 07/02/18 00:45 Sputum Culture - Preliminary Sputum Staphylococcus aureus 07/02/18 14:42 Blood Culture - Preliminary Peripheral Venipuncture Culture is incubating and being continuously monitored for growth. Final report to follow. 07/02/18 14:39 Blood Culture - Preliminary Peripheral Venipuncture Culture is incubating and being continuously mo nitored for growth. Final report to follow. - Clinical Findings Intake & Output: Intake & Output 07/04/18 07/04/18 07/04/18 07:59 15:59 23:59 Intake Total 745 / 745 Output Total 450 / 450 250 / 250 Balance -450 / -450 495 / 495 - Attending Attestation I examined this patient and my medical decision-making was reviewed with the Resident Physician. I agree with the documented findings, disposition and treatment plan as described except to the extent set forth below. Patient seen and examined. Labs, radiology, chart personally reviewed. 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 Patient with significant pneumonia and reviewing CT chest significant emphysematous changes and for that reason continue systemic steroids and add Symbicort and continue bronchodilators. I have discussed with the family might be difficult to get patient on the ventilator due to her underlying emphysema and also significant secretion was found upon suctioning for that reason bronchoscopy also was done. Cardiovascular: stable GI: Nutrition per dietary and GI prophylaxis per routine Heme: DVT prophylaxis per routine ID: Continue antibiotics and plan to de-escalation Renal; urine out put and renal funtion reviewed Endorcine: blood glucose is monitored Lines: all lines checked and no evidence of infections Skin: skin care to prevent pressure ulcers per nursing routine care I spent 35 min of Critical Care time with this patient. It involved decision making of high complexity to assess, manipulate, and support vital organ system failure and/or to prevent further life threatening deterioration of the patient's condition. The time involved in the performance of separately reportable procedures was not counted toward critical care time.
[2018-07-04 09:07] LABS: ABG Base Excess 0 mEq/L (-2 to 3); ABG HCO3 27 mEq/L (21-27); ABG Oxygen Saturation 97 % (95-98); ABG PCO2 51 mmHg (35-45); ABG PH 7.33 pH Units (7.32-7.45); ABG PO2 97 mmHg (85-104); ABG TCO2 29 mEq/L (20-26); Blood Gas Modality VC; Blood Gas PEEP 5 cm H2O; Blood Gas Respiration Rate 10; Blood Gas VT 450 cc
--- NOTE | 2018-07-04 09:49 | Electrocardiograph Report ---
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
--- NOTE | 2018-07-04 09:52 | Electrocardiograph Report ---
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
--- NOTE | 2018-07-04 09:52 | Electrocardiograph Report ---
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
[2018-07-04] MEDS: Ipratropium Neb 0.5 MG NEBULIZER IH SCH ×2 (10:04→10:41)
[2018-07-04] MEDS ORDERED: Ringers Solution, Lactated 500 ML IVC ONE (10:38)
[2018-07-04] MEDS: Budesonide/Formoterol 160/4.5 1 PUFF INH IH SCH ×2 (11:16→21:18)
[2018-07-04] MEDS: Insulin LISPRO 300 UNITS/3 ML VIAL SQ SCH ×2 (11:29→16:28)
[2018-07-04 13:39] LABS: Appearance of Body Fluid Cloudy (Clear); Volume of Body Fluid 15 mL
[2018-07-04] MEDS: Ipratropium/Albuterol Neb 3 ML IH SCH ×2 (15:48→21:18)
[2018-07-04] MEDS ORDERED: *HR* LORazepam 2 MG/ML VIAL IVP ONE (23:12)
[2018-07-04] MEDS ORDERED: *HR* LORazepam 2 MG/ML VIAL ONE (23:14)
[2018-07-05] MEDS: FentaNYL (PF) 1,000 MCG in 0.9 % Sodium Chloride 80 ML IVC SCH ×2 (00:04→03:07)
[2018-07-05] MEDS: Artificial Tears SOLN 15 ML BOTTLE BOTH EYES SCH ×3 (03:07→11:22)
[2018-07-05] MEDS: Ipratropium/Albuterol Neb 3 ML IH SCH ×4 (03:29→21:29)
[2018-07-05 03:37] LABS: Basophils # 0.1 K/mcL (0.0-0.2); Basophils % 0.5 %; Hematocrit 33.4 % (35.3-44.9); Hemoglobin 10.9 g/dL (11.5-15.4); Immature Granulocytes % 0.4 % (0-4); Lymphocytes # 0.3 K/mcL (0.6-4.6); Lymphocytes % 3.2 %; Mean Corpuscular HGB Conc 32.6 g/dL (31.6-35.5); Mean Corpuscular Hemoglobin 29.1 pg (28.0-33.3); Mean Corpuscular Volume 89.1 fL (83.0-100.0); Mean Platelet Volume 11.1 fL (9.4-12.4); Monocytes # 0.7 K/mcL (0.0-1.3); Monocytes % 6.7 %; Neutrophils # 9.2 K/mcL (1.6-8.9); Platelet Count 198 K/mcL (140-400); Red Blood Count 3.75 M/mcL (3.82-4.97); Red Cell Distribution Width 13.8 % (11.5-14.5); Segmented Neutrophils % 89.2 %
[2018-07-05 03:56] LABS: BUN/Creatinine Ratio 50 (6-26); Blood Urea Nitrogen 28 mg/dL (6-20); Calcium 8.7 mg/dL (8.6-10.3); Carbon Dioxide 25 mEq/L (23-29); Chloride 105 mEq/L (98-107); Glucose 207 mg/dL (70-105); Osmolality,Calculated 298 (280-300); Potassium 4.2 mEq/L (3.5-5.1); Sodium 138 mEq/L (136-145); eGFR For Non-African Americans > 60 (> 60)
[2018-07-05 04:10] LABS: Platelet Estimate Normal (Normal)
[2018-07-05] MEDS: Dexmedetomidine HCl 400 MCG/100 ML MLS IVC SCH ×2 (04:29→08:40)
[2018-07-05 04:31] LABS: ABG Base Excess 2 mEq/L (-2 to 3); ABG HCO3 28 mEq/L (21-27); ABG Oxygen Saturation 94 % (95-98); ABG PCO2 54 mmHg (35-45); ABG PH 7.33 pH Units (7.32-7.45); ABG PO2 78 mmHg (85-104); ABG TCO2 30 mEq/L (20-26); Blood Gas Modality ASSIST CONTROL; Blood Gas PEEP 5 cm H2O; Blood Gas Respiration Rate 10; Blood Gas VT 450 cc
[2018-07-05] MEDS: *HR* Heparin 5,000 UNIT/ML VIAL SQ SCH ×3 (06:02→22:22)
[2018-07-05] MEDS: Pregabalin 75 MG CAPSULE PO SCH ×2 (07:37→22:25)
[2018-07-05] MEDS: MethylPREDNISolone 40 MG/ML VIAL IVP SCH ×3 (07:44→22:22)
[2018-07-05] MEDS: Nicotine 21 MG PATCH.TD24 TD SCH (07:45)
[2018-07-05] MEDS: Chlorhexidine Rinse 15 ML MOUTHWASH MM SCH (07:45)
[2018-07-05] MEDS: Levofloxacin 750 MG/150 ML 750 MG/150 ML BAG IVPB SCH (07:47)
[2018-07-05] MEDS: Pantoprazole 40 MG VIAL IVP SCH (07:48)
[2018-07-05] MEDS ORDERED: Ringers Solution, Lactated 500 ML IVC ONE (07:55)
[2018-07-05] MEDS: Insulin LISPRO 300 UNITS/3 ML VIAL SQ SCH ×3 (08:08→16:35)
--- NOTE | 2018-07-05 08:48 | Pulmonology Progress Note ---
<SharanMargaret M - Last Filed: 07/05/18 10:07> Date of Encounter: 07/05/18 Objective PUL Vital signs: Last Vital Signs Temp 98.6 F 07/05/18 08:00 Pulse 105 07/05/18 08:00 Resp 16 07/05/18 08:00 BP 100/62 07/05/18 08:00 Pulse Ox 96 07/05/18 08:00 Ventilator Settings Ventilator Settings: Ventilator Settings, Last 8 Hours Ventilator Tidal Volume 450 Setting Ventilator Tidal Volume 450 Setting Ventilator Tidal Volume 450 Setting Ventilator Tidal Volume 450 Setting Ventilator Tidal Volume 450 Setting Ventilator Tidal Volume 450 Setting Ventilator Tidal Volume 450 Setting Ventilator Respiratory Rate 10 Setting Ventilator Respiratory Rate 10 Setting Ventilator Respiratory Rate 10 Setting Ventilator Respiratory Rate 10 Setting Ventilator Respiratory Rate 10 Setting Ventilator Respiratory Rate 10 Setting Ventilator Respiratory Rate 10 Setting Ventilator Respiratory Rate 10 Setting Actual Respiratory Rate 17 Actual Respiratory Rate 13 Actual Respiratory Rate 16 Actual Respiratory Rate 13 Actual Respiratory Rate 17 Actual Respiratory Rate 15 Actual Respiratory Rate 17 Actual Respiratory Rate 17 Positive End Expiratory 5 Pressure Positive End Expiratory 5 Pressure Positive End Expiratory 5 Pressure Positive End Expiratory 5 Pressure Positive End Expiratory 5 Pressure Positive End Expiratory 5 Pressure Positive End Expiratory 5 Pressure Positive End Expiratory 5 Pressure Positive End Expiratory 5 Pressure Peak Inspiratory Airway 45 Pressure Peak Inspiratory Airway 22 Pressure Peak Inspiratory Airway 19 Pressure Peak Inspiratory Airway 19 Pressure Peak Inspiratory Airway 28 Pressure Peak Inspiratory Airway 14 Pressure Peak Inspiratory Airway 16 Pressure Results - Laboratory Findings CBC and BMP: 07/05/18 03:20 07/05/18 03:20 ABG ABG pH 7.33 pH Units (7.32-7.45) 07/05/18 04:28 ABG pCO2 54 mmHg (35-45) H 07/05/18 04:28 ABG pO2 78 mmHg (85-104) L 07/05/18 04:28 ABG O2 Saturation 94 % (95-98) L 07/05/18 04:28 PT/INR, D-dimer PT 20.2 Seconds (9.4-12.1) H 07/02/18 14:29 Abnormal lab findings: Abnormal lab results RBC 3.75 M/mcL (3.82-4.97) L 07/05/18 03:20 Hgb 10.9 g/dL (11.5-15.4) L 07/05/18 03:20 Hct 33.4 % (35.3-44.9) L 07/05/18 03:20 Band Neutrophils % 26.0 % (0-4) H 07/03/18 01:30 Neutrophils # 9.2 K/mcL (1.6-8.9) H 07/05/18 03:20 Lymphocytes # 0.3 K/mcL (0.6-4.6) L 07/05/18 03:20 Reactive Lymphocytes Present (Not Present) A 07/03/18 01:30 Large Platelets Present (Not Present) A 07/03/18 01:30 PT 20.2 Seconds (9.4-12.1) H 07/02/18 14:29 ABG pCO2 54 mmHg (35-45) H 07/05/18 04:28 ABG pO2 78 mmHg (85-104) L 07/05/18 04:28 ABG HCO3 28 mEq/L (21-27) H 07/05/18 04:28 ABG Total CO2 30 mEq/L (20-26) H 07/05/18 04:28 ABG O2 Saturation 94 % (95-98) L 07/05/18 04:28 BUN 28 mg/dL (6-20) H 07/05/18 03:20 Creatinine 0.56 mg/dL (0.60-1.20) L 07/05/18 03:20 BUN/Creatinine Ratio 50 (6-26) H 07/05/18 03:20 Glucose 207 mg/dL (70-105) H 07/05/18 03:20 POC Glucose 199 mg/dL (70-99) H 07/05/18 08:07 AST 12 Units/L (13-39) L 07/02/18 14:42 Ur Specific [place] > 1.030 (1.010-1.025) H 07/02/18 14:42 Urine Protein 30 mg/dL (Neg-Trace) H 07/02/18 14:42 Urine Glucose (UA) 250 mg/dL (Normal) H 07/02/18 14:42 Urine Ketones Trace mg/dL (Negative) H 07/02/18 14:42 Urine Blood Moderate (Negative) H 07/02/18 14:42 Urine Microscopic RBC 15-30 per hpf (0-3) H 07/02/18 14:42 Ur Squamous Epith Cells Many per lpf (None-Few) H 07/02/18 14:42 Fluid Appearance Cloudy (Clear) A 07/04/18 12:56 Nasal Screen MRSA (PCR) Positive (Negative) A 07/04/18 08:20 - Microbiology Findings Microbiology Findings: Microbiology, Last 48 Hours 07/02/18 00:45 Sputum Culture - Final Sputum Methicillin Resistant S.aureus 07/04/18 12:56 Respiratory Culture - Preliminary Left Lower Lobe Lung 07/03/18 16:59 Legionella Antigen - Final Urine,Clean Catch 07/03/18 16:59 Streptococcus pneumoniae Antigen (M - Final Urine,Clean Catch - Clinical Findings Intake & Output: Intake & Output 07/04/18 07/05/18 07/05/18 23:59 07:59 15:59 Intake Total 700 / 700 200 / 200 185 / 185 Output Total 1050 / 1050 250 / 250 250 / 250 Balance -350 / -350 -50 / -50 -65 / -65 Weight 86 kg 86 kg Consult Discharge Plan - Plan Referrals: Jad Rodarte DO [Primary Care Provider] - - Attending Attestation examined this patient and my medical decision-making was reviewed with the Resident Physician. I agree with the documented findings, disposition and treatment plan as described except to the extent set forth below. Patient seen and examined. Labs, radiology, chart personally reviewed. Agree with resident's history and physical, assessment, plan with following comments: DOCUMENTATION NURSE: Patient sedated and does not follows commands, will wean off sedation and plan to extubate. Pulmonary: Acceptable oxygenation and ventilation. Patient is doing reasonable on a spontaneous breathing trial and amount of secretion is less after bronchoscopy and treatment for pneumonia. We will plan for extubation to noninvasive ventilation if she needs it. Cardiovascular: stable GI: Nutrition per dietary and GI prophylaxis per routine Heme: DVT prophylaxis per routine ID: Continue antibiotics and plan to de-escalation. Continue Vancomycin and Levaquin until BAL finalized. Renal; urine out put and renal funtion reviewed Endorcine: blood glucose is monitored Lines: all lines checked and no evidence of infections Skin: skin care to prevent pressure ulcers per nursing routine care <Ness Le - Last Filed: 07/05/18 10:55> Date of Encounter: 07/05/18 Time of Encounter: 08:00 Assessment and Plan (1) Acute respiratory failure with hypoxia Current Visit: Yes Status: Acute Secondary to worsening left-sided pneumonia. Patient is intubated under sedation. Patient has been on CPAP since 5am this morning. Wean off sedation and extubate today. Also see plan #2. (2) CAP (community acquired pneumonia) Current Visit: Yes Status: Acute Severe community-acquired pneumonia Patient presented with dyspnea, tachypnea, and hypoxia. Possibly secondary to decreased inspiratory effort in setting of reported rib fractures. CXR 07/02 showed left lung pneumonia. CTA chest 07/02 showed diffuse left upper lobe pneumonia CXR 07/03 showed worsening left lung infiltrate Respiratory panel is negative. Legionella and Strep pneumoniae antigens are negative. Nasal MRSA screen is positive. Sputum culture shows MRSA. Blood cultures drawn 07/02 x2 sets are NGTD. Bronchoscopy with BAL showed mucopurulent secretions throughout tracheobronchial tree. BAL shows many WBC and no bacteria. Discontinued rocephin. Continue day 2 of vancomycin and levaquin. Plan to de-escalate when final BAL results. Qualifiers: Laterality: left Lung location: lower lobe of lung Qualified Code(s): J18.1 - Lobar pneumonia, unspecified organism (3) COPD exacerbation Current Visit: Yes Status: Acute History of COPD. Lifelong smoker. Continue breathing treatments. Continue day 3 of Solu-Medrol IV 60 mg every 8 hours Continue antimicrobials (4) Sepsis Current Visit: Yes Status: Resolved On presentation, patient was febrile, tachycardic, and tachypneic. Leukocytosis of 21.9 with neutrophilic predominance. Lactic acid normal. Secondary to pneumonia. CXR showed new left pneumonia. Fever, tachycardia, and leukocytosis resolved. Sepsis resolved. Qualifiers: Sepsis type: sepsis due to unspecified organism Qualified Code(s): A41.9 - Sepsis, unspecified organism (5) Hypotension Current Visit: Yes Status: Acute Yesterday, hypotensive ~80s/50s. MAP remained >65. Possibly secondary to fentanyl and precedex. Today, BP improved to 95/65. Wean off sedation today. Continue to monitor BP. Qualifiers: Qualified Code(s): I95.9 - Hypotension, unspecified (6) Hyperkalemia Current Visit: Yes Status: Acute Mild hyperkalemia. Yesterday, potassium level elevated at 5.4. On 07/03, potassium level of 5.0. Possibly secondary to worsening kidney function. Yesterday, Cr of 0.80. On 07/03, Cr of 0.61. Gentle IVF. Today, K level is normal at 4.2. Continue to monitor. (7) Hyperglycemia Current Visit: Yes Status: Acute No history of diabetes. On 07/05, had 2 glucose readings >200. Low SSI. (8) Pulmonary nodules Current Visit: Yes Status: Acute Current lifelong smoker. CTA chest shows multiple pulmonary nodules in left lower lobe, largest measuring 1cm. Followup CT chest as outpatient in 2-3 months. (9) Smoker Current Visit: Yes Status: Acute Current lifelong smoker. Tobacco abuse counseling education given Nicotine patch. Subjective Interval history: Patient seen and examined. Patient is intubated under sedation. She is on CPAP. Patient cannot provide any history or ROS. She does not follow commands. Objective PUL Vital signs: Last Vital Signs Temp 98.6 F 07/05/18 08:00 Pulse 105 07/05/18 08:00 Resp 16 07/05/18 08:00 BP 100/62 07/05/18 08:00 Pulse Ox 96 07/05/18 08:00 General appearance: no acute distress, alert Eyes: nonicteric Neck: supple Effort: normal Auscultation: bilateral: wheezes (diffuse expiratory wheezing), rales (diffuse expiratory crackles ) Cardiovascular: regular rate and rhythm Gastrointestinal: normoactive bowel sounds, soft, non-tender Integumentary: normal Extremities: no cyanosis, no edema, no clubbing, pink and warm Musculoskeletal: no deformities unable to assess due to mental status Ventilator Settings Ventilator Settings: Ventilator Settings, Last 8 Hours Ventilator Tidal Volume 450 Setting Ventilator Tidal Volume 450 Setting Ventilator Tidal Volume 450 Setting Ventilator Tidal Volume 450 Setting Ventilator Tidal Volume 450 Setting Ventilator Tidal Volume 450 Setting Ventilator Tidal Volume 450 Setting Ventilator Tidal Volume 450 Setting Ventilator Tidal Volume 450 Setting Ventilator Respiratory Rate 10 Setting Ventilator Respiratory Rate 10 Setting Ventilator Respiratory Rate 10 Setting Ventilator Respiratory Rate 10 Setting Ventilator Respiratory Rate 10 Setting Ventilator Respiratory Rate 10 Setting Ventilator Respiratory Rate 10 Setting Ventilator Respiratory Rate 10 Setting Ventilator Respiratory Rate 10 Setting Ventilator Respiratory Rate 10 Setting Actual Respiratory Rate 17 Actual Respiratory Rate 13 Actual Respiratory Rate 16 Actual Respiratory Rate 13 Actual Respiratory Rate 17 Actual Respiratory Rate 15 Actual Respiratory Rate 17 Actual Respiratory Rate 17 Actual Respiratory Rate 19 Actual Respiratory Rate 19 Positive End Expiratory 5 Pressure Positive End Expiratory 5 Pressure Positive End Expiratory 5 Pressure Positive End Expiratory 5 Pressure Positive End Expiratory 5 Pressure Positive End Expiratory 5 Pressure Positive End Expiratory 5 Pressure Positive End Expiratory 5 Pressure Positive End Expiratory 5 Pressure Positive End Expiratory 5 Pressure Positive End Expiratory 5 Pressure Peak Inspiratory Airway 45 Pressure Peak Inspiratory Airway 22 Pressure Peak Inspiratory Airway 19 Pressure Peak Inspiratory Airway 19 Pressure Peak Inspiratory Airway 28 Pressure Peak Inspiratory Airway 14 Pressure Peak Inspiratory Airway 16 Pressure Peak Inspiratory Airway 32 Pressure Peak Inspiratory Airway 34 Pressure Results - Laboratory Findings CBC and BMP: 07/05/18 03:20 07/05/18 03:20 ABG ABG pH 7.33 pH Units (7.32-7.45) 07/05/18 04:28 ABG pCO2 54 mmHg (35-45) H 07/05/18 04:28 ABG pO2 78 mmHg (85-104) L 07/05/18 04:28 ABG O2 Saturation 94 % (95-98) L 07/05/18 04:28 PT/INR, D-dimer PT 20.2 Seconds (9.4-12.1) H 07/02/18 14:29 Abnormal lab findings: Abnormal lab results RBC 3.75 M/mcL (3.82-4.97) L 07/05/18 03:20 Hgb 10.9 g/dL (11.5-15.4) L 07/05/18 03:20 Hct 33.4 % (35.3-44.9) L 07/05/18 03:20 Band Neutrophils % 26.0 % (0-4) H 07/03/18 01:30 Neutrophils # 9.2 K/mcL (1.6-8.9) H 07/05/18 03:20 Lymphocytes # 0.3 K/mcL (0.6-4.6) L 07/05/18 03:20 Reactive Lymphocytes Present (Not Present) A 07/03/18 01:30 Large Platelets Present (Not Present) A 07/03/18 01:30 PT 20.2 Seconds (9.4-12.1) H 07/02/18 14:29 ABG pCO2 54 mmHg (35-45) H 07/05/18 04:28 ABG pO2 78 mmHg (85-104) L 07/05/18 04:28 ABG HCO3 28 mEq/L (21-27) H 07/05/18 04:28 ABG Total CO2 30 mEq/L (20-26) H 07/05/18 04:28 ABG O2 Saturation 94 % (95-98) L 07/05/18 04:28 BUN 28 mg/dL (6-20) H 07/05/18 03:20 Creatinine 0.56 mg/dL (0.60-1.20) L 07/05/18 03:20 BUN/Creatinine Ratio 50 (6-26) H 07/05/18 03:20 Glucose 207 mg/dL (70-105) H 07/05/18 03:20 POC Glucose 199 mg/dL (70-99) H 07/05/18 08:07 AST 12 Units/L (13-39) L 07/02/18 14:42 Ur Specific [place] > 1.030 (1.010-1.025) H 07/02/18 14:42 Urine Protein 30 mg/dL (Neg-Trace) H 07/02/18 14:42 Urine Glucose (UA) 250 mg/dL (Normal) H 07/02/18 14:42 Urine Ketones Trace mg/dL (Negative) H 07/02/18 14:42 Urine Blood Moderate (Negative) H 07/02/18 14:42 Urine Microscopic RBC 15-30 per hpf (0-3) H 07/02/18 14:42 Ur Squamous Epith Cells Many per lpf (None-Few) H 07/02/18 14:42 Fluid Appearance Cloudy (Clear) A 07/04/18 12:56 Nasal Screen MRSA (PCR) Positive (Negative) A 07/04/18 08:20 - Microbiology Findings Microbiology Findings: Microbiology, Last 48 Hours 07/02/18 00:45 Sputum Culture - Final Sputum Methicillin Resistant S.aureus 07/04/18 12:56 Respiratory Culture - Preliminary Left Lower Lobe Lung 07/03/18 16:59 Legionella Antigen - Final Urine,Clean Catch 07/03/18 16:59 Streptococcus pneumoniae Antigen (M - Final Urine,Clean Catch - Clinical Findings Intake & Output: Intake & Output 07/04/18 07/05/18 07/05/18 23:59 07:59 15:59 Intake Total 700 / 700 200 / 200 85 / 85 Output Total 1050 / 1050 250 / 250 250 / 250 Balance -350 / -350 -50 / -50 -165 / -165 Weight 86 kg 86 kg
[2018-07-05] MEDS: Budesonide/Formoterol 160/4.5 1 PUFF INH IH SCH ×2 (10:35→21:29)
[2018-07-06] MEDS: Ipratropium/Albuterol Neb 3 ML IH SCH ×4 (03:32→22:53)
[2018-07-06 04:03] LABS: Basophils % 0.3 %; Hemoglobin 10.9 g/dL (11.5-15.4); Immature Granulocytes % 1.4 % (0-4); Lymphocytes # 0.7 K/mcL (0.6-4.6); Lymphocytes % 4.3 %; Mean Corpuscular Hemoglobin 29.1 pg (28.0-33.3); Mean Corpuscular Volume 88.2 fL (83.0-100.0); Mean Platelet Volume 11.1 fL (9.4-12.4); Monocytes # 1.1 K/mcL (0.0-1.3); Monocytes % 6.7 %; Neutrophils # 13.9 K/mcL (1.6-8.9); Platelet Count 219 K/mcL (140-400); Red Blood Count 3.74 M/mcL (3.82-4.97); Red Cell Distribution Width 14.2 % (11.5-14.5); Segmented Neutrophils % 87.3 %
[2018-07-06 04:04] LABS: Basophils # 0.1 K/mcL (0.0-0.2)
[2018-07-06 04:20] LABS: BUN/Creatinine Ratio 53 (6-26); Blood Urea Nitrogen 23 mg/dL (6-20); Calcium 8.4 mg/dL (8.6-10.3); Carbon Dioxide 29 mEq/L (23-29); Chloride 106 mEq/L (98-107); Glucose 150 mg/dL (70-105); Osmolality,Calculated 297 (280-300); Potassium 3.7 mEq/L (3.5-5.1); Sodium 140 mEq/L (136-145); eGFR For Non-African Americans > 60 (> 60)
[2018-07-06] MEDS: *HR* Heparin 5,000 UNIT/ML VIAL SQ SCH ×3 (05:29→21:34)
[2018-07-06] MEDS: FentaNYL (PF) 1,000 MCG in 0.9 % Sodium Chloride 80 ML IVC SCH (07:38)
[2018-07-06] MEDS: Insulin LISPRO 300 UNITS/3 ML VIAL SQ SCH ×3 (07:41→16:36)
--- NOTE | 2018-07-06 07:43 | Pulmonology Progress Note ---
Date of Encounter: 07/06/18 Time of Encounter: 07:43 Assessment and Plan (1) Acute respiratory failure with hypoxia Current Visit: Yes Status: Acute She is been successfully liberated from the vent for pressure-like 24 hours weaned down to a high flow nasal cannula tolerating this well continue to wean FiO2 to keep saturation greater than 88% on encourage incentive spirometry out of bed to chair and early ambulation/PT OT consultation (2) MRSA pneumonia Current Visit: Yes Status: Acute Patient has MRSA pneumonia. Trough was less than 10 yesterday I discussed with pharmacy and this is been redosed she had a increase in her white count which is suspect is out from under dosing of vancomycin. Clinically she appears to be improving but somewhat tenuous and would need to be followed closely however not in ICU level of setting but it would be appropriate for stepdown. She will need to have phase at least a day course of treatment and probably closer to 10-14 based upon how she responds. Although could consider linezolid in this situation given her chronic use of SNRI I am hesitant to do so for concern of serotonin syndrome Likely need ID consultation early part of this week if no improvement She is on Levaquin at this time and this could likely be discontinued Repeat CT scan in 4-6 weeks at the time of discharge Qualifiers: Laterality: left Lung location: unspecified part of lung Qualified Code(s): J15.212 - Pneumonia due to Methicillin resistant Staphylococcus aureus (3) COPD exacerbation Current Visit: Yes Status: Acute (4) Sepsis Current Visit: Yes Status: Resolved Overall improving secondary to MRSA pneumonia Qualifiers: Sepsis type: sepsis due to unspecified organism Qualified Code(s): A41.9 - Sepsis, unspecified organism (5) Smoker Current Visit: Yes Status: Acute Tobacco cessation counseling given (6) Pulmonary nodules Current Visit: Yes Status: Acute It outpatient pulmonary follow-up for this (7) Tachycardia Current Visit: Yes Status: Acute Multifactorial we are adding a low dose of beta april today's as this has been persistent Stable for transfer to stepdown unit for ongoing care Subjective Principal diagnosis: Pneumonia Interval history: He appears to be improving although she still complaining of a lot of thick Mucus sometimes mixed with blood. Chest there is still quite congested and she is complaining of a musculoskeletal pain is well which is been persistent. No fevers overnight slight increase in white count remains persistently tachycardic Objective PUL Vital signs: Last Vital Signs Temp 97.4 F L 07/06/18 04:38 Pulse 100 07/06/18 05:59 Resp 16 07/06/18 05:59 BP 102/68 07/06/18 05:59 Pulse Ox 94 07/06/18 05:59 General appearance: other (Tired appearing) Eyes: nonicteric ENT: oropharynx dry Effort: normal Auscultation: left: clear, right: rales, bilateral: wheezes (End expiratory wheezes) Cardiovascular: regular rate and rhythm Gastrointestinal: normoactive bowel sounds Integumentary: normal Extremities: no cyanosis, no edema, no clubbing Musculoskeletal: no deformities normal mental status, non-focal exam mood appropriate Results - Laboratory Findings CBC and BMP: 07/06/18 03:32 07/06/18 03:32 ABG ABG pH 7.33 pH Units (7.32-7.45) 07/05/18 04:28 ABG pCO2 54 mmHg (35-45) H 07/05/18 04:28 ABG pO2 78 mmHg (85-104) L 07/05/18 04:28 ABG O2 Saturation 94 % (95-98) L 07/05/18 04:28 PT/INR, D-dimer PT 20.2 Seconds (9.4-12.1) H 07/02/18 14:29 Abnormal lab findings: Abnormal lab results WBC 15.9 K/mcL (4.3-11.1) H D 07/06/18 03:32 RBC 3.74 M/mcL (3.82-4.97) L 07/06/18 03:32 Hgb 10.9 g/dL (11.5-15.4) L 07/06/18 03:32 Hct 33.0 % (35.3-44.9) L 07/06/18 03:32 Band Neutrophils % 26.0 % (0-4) H 07/03/18 01:30 Neutrophils # 13.9 K/mcL (1.6-8.9) H 07/06/18 03:32 Reactive Lymphocytes Present (Not Present) A 07/03/18 01:30 Large Platelets Present (Not Present) A 07/03/18 01:30 PT 20.2 Seconds (9.4-12.1) H 07/02/18 14:29 ABG pCO2 54 mmHg (35-45) H 07/05/18 04:28 ABG pO2 78 mmHg (85-104) L 07/05/18 04:28 ABG HCO3 28 mEq/L (21-27) H 07/05/18 04:28 ABG Total CO2 30 mEq/L (20-26) H 07/05/18 04:28 ABG O2 Saturation 94 % (95-98) L 07/05/18 04:28 BUN 23 mg/dL (6-20) H 07/06/18 03:32 Creatinine 0.43 mg/dL (0.60-1.20) L 07/06/18 03:32 BUN/Creatinine Ratio 53 (6-26) H 07/06/18 03:32 Glucose 150 mg/dL (70-105) H 07/06/18 03:32 POC Glucose 134 mg/dL (70-99) H 07/06/18 07:15 Calcium 8.4 mg/dL (8.6-10.3) L 07/06/18 03:32 AST 12 Units/L (13-39) L 07/02/18 14:42 Ur Specific [place] > 1.030 (1.010-1.025) H 07/02/18 14:42 Urine Protein 30 mg/dL (Neg-Trace) H 07/02/18 14:42 Urine Glucose (UA) 250 mg/dL (Normal) H 07/02/18 14:42 Urine Ketones Trace mg/dL (Negative) H 07/02/18 14:42 Urine Blood Moderate (Negative) H 07/02/18 14:42 Urine Microscopic RBC 15-30 per hpf (0-3) H 07/02/18 14:42 Ur Squamous Epith Cells Many per lpf (None-Few) H 07/02/18 14:42 Fluid Appearance Cloudy (Clear) A 07/04/18 12:56 Nasal Screen MRSA (PCR) Positive (Negative) A 07/04/18 08:20 - Microbiology Findings Microbiology Findings: Microbiology, Last 48 Hours 07/04/18 12:56 Acid Fast Stain - Final Left Lower Lobe Lung 07/04/18 12:56 Respiratory Culture - Final Left Lower Lobe Lung Methicillin Resistant S.aureus 07/02/18 00:45 Sputum Culture - Final Sputum Methicillin Resistant S.aureus 07/03/18 16:59 Legionella Antigen - Final Urine,Clean Catch 07/03/18 16:59 Streptococcus pneumoniae Antigen (M - Final Urine,Clean Catch - Clinical Findings Intake & Output: Intake & Output 07/05/18 07/05/18 07/06/18 15:59 23:59 07:59 Intake Total 1135 / 1135 250 / 250 Output Total 500 / 500 350 / 350 200 / 200 Balance 635 / 635 -350 / -350 50 / 50 Consult Discharge Plan - Plan Referrals: Jad Rodarte DO [Primary Care Provider] -
[2018-07-06] MEDS: Pregabalin 75 MG CAPSULE PO SCH ×3 (07:54→21:34)
[2018-07-06] MEDS: Nicotine 21 MG PATCH.TD24 TD SCH (07:55)
[2018-07-06] MEDS: MethylPREDNISolone 40 MG/ML VIAL IVP SCH ×3 (07:55→23:01)
[2018-07-06] MEDS: Pantoprazole 40 MG VIAL IVP SCH (07:55)
[2018-07-06] MEDS: Levofloxacin 750 MG/150 ML 750 MG/150 ML BAG IVPB SCH (07:59)
[2018-07-06] MEDS: Budesonide/Formoterol 160/4.5 1 PUFF INH IH SCH ×2 (10:40→22:53)
[2018-07-06] MEDS: *HR* OxyCODONE/APAP 5/325 TABLET PO PRN ×3 (12:09→21:35)
[2018-07-07] MEDS: Ipratropium/Albuterol Neb 3 ML IH SCH ×4 (04:55→21:13)
[2018-07-07] MEDS: *HR* Heparin 5,000 UNIT/ML VIAL SQ SCH ×3 (05:02→20:12)
[2018-07-07] MEDS: *HR* OxyCODONE/APAP 5/325 TABLET PO PRN ×3 (05:02→20:13)
[2018-07-07 05:46] LABS: Basophils # 0.1 K/mcL (0.0-0.2); Basophils % 0.3 %; Hematocrit 35.1 % (35.3-44.9); Hemoglobin 11.6 g/dL (11.5-15.4); Immature Granulocytes % 4.8 % (0-4); Lymphocytes # 0.8 K/mcL (0.6-4.6); Lymphocytes % 5.3 %; Mean Corpuscular Hemoglobin 29.4 pg (28.0-33.3); Mean Corpuscular Volume 88.9 fL (83.0-100.0); Mean Platelet Volume 11.1 fL (9.4-12.4); Monocytes % 6.3 %; Neutrophils # 12.7 K/mcL (1.6-8.9); Nucleated Red Blood Cells 0.1 /100 WBC (0); Platelet Count 226 K/mcL (140-400); Red Blood Count 3.95 M/mcL (3.82-4.97); Red Cell Distribution Width 14.2 % (11.5-14.5); Segmented Neutrophils % 83.3 %
[2018-07-07 06:06] LABS: BUN/Creatinine Ratio 46 (6-26); Blood Urea Nitrogen 21 mg/dL (6-20); Calcium 8.4 mg/dL (8.6-10.3); Carbon Dioxide 29 mEq/L (23-29); Chloride 101 mEq/L (98-107); Glucose 160 mg/dL (70-105); Osmolality,Calculated 292 (280-300); Potassium 3.6 mEq/L (3.5-5.1); Sodium 138 mEq/L (136-145); eGFR For Non-African Americans > 60 (> 60)
[2018-07-07] MEDS: Insulin LISPRO 300 UNITS/3 ML VIAL SQ SCH ×3 (08:55→16:24)
[2018-07-07] MEDS: Levofloxacin 750 MG/150 ML 750 MG/150 ML BAG IVPB SCH (09:07)
[2018-07-07] MEDS: MethylPREDNISolone 40 MG/ML VIAL IVP SCH ×3 (09:07→23:30)
[2018-07-07] MEDS: Pregabalin 75 MG CAPSULE PO SCH ×2 (09:07→20:12)
[2018-07-07] MEDS: Pantoprazole 40 MG VIAL IVP SCH (09:07)
[2018-07-07] MEDS: Nicotine 21 MG PATCH.TD24 TD SCH (09:08)
[2018-07-07] MEDS: Budesonide/Formoterol 160/4.5 1 PUFF INH IH SCH ×2 (09:27→21:13)
--- NOTE | 2018-07-07 09:32 | Internal Med Progress Note ---
Hospitalist Progress Note - Encounter Date of Encounter: 07/07/18 Time of Encounter: 11:00 - Subjective Interval History: Patient presented with a 2 day history of rib pain with cough and shortness of breath and found to have sepsis secondary to pneumonia with imaging revealing left upper lobe/left lower lobe infiltrate. Patient's hypoxic respiratory failure continued to worsen and repeat chest x-ray showed worsening pneumonia and patient subsequently transferred to the ICU for critical care management where she was intubated. Patient subsequently found to have MRSA pneumonia has been treated with IV vancomycin and subsequently extubated. Patient has now been transferred back to progressive unit for further management. - Exam Vitals: Temp Pulse Resp BP Pulse Ox 98.2 F 84 18 94/63 95 07/07/18 07:38 07/07/18 07:38 07/07/18 07:38 07/07/18 07:38 07/07/18 07:38 Exam: Gen.: Mild distress, alert and oriented 3 ENT: Mucosal membranes moist Respiratory: Lungs are clear to auscultation bilaterally without any wheezing rhonchi or rales Cardiovascular: Normal S1 and S2 without any murmurs rubs or gallops; tachycardic Abdomen: Soft, nontender and nondistended with positive bowel sounds Extremities: No lower extremity edema Skin: Normal color - Assessment and Plan (1) Acute respiratory failure with hypoxia Current Visit: Yes Status: Acute Assessment and Plan: Patient with acute hypoxic respiratory failure requiring increased amounts of supplemental oxygenation Patient was subsequently transferred to ICU and was intubated; patient extubated on 07/05/18 and currently maintaining O2 sats on high flow nasal cannula Continuing scheduled DuoNeb nebs and IV Solu-Medrol; management for pneumonia as below (2) CAP (community acquired pneumonia) Current Visit: Yes Status: Acute Assessment and Plan: Patient found to have MRSA pneumonia on sputum cultures. Will continue day 4 of IV vancomycin (3) Sepsis Current Visit: Yes Status: Resolved Assessment and Plan: Secondary to and management as above (4) Tachycardia Current Visit: Yes Status: Acute Assessment and Plan: Multifactorial including sepsis above Will consider a low dose beta april if needed (5) Pulmonary nodules Current Visit: Yes Status: Acute Assessment and Plan: Patient also noted to have multiple pulmonary nodules on CTPA Patient with significant medical history of being a 35 pack year smoker She will need to follow-up as an outpatient and to [address] of chest (6) Smoker Current Visit: Yes Status: Acute Assessment and Plan: Patient is a 35 pack year smoker interested in quitting Will offer nicotine replacement (7) Chronic pain Current Visit: Yes Status: Acute Assessment and Plan: Continue patient's home dose of Cymbalta and Mobic in addition to Lyrica DVT Prophylaxis: Heparin subcutaneous - Time Spent with Patient Total time spent is greater than 50% in coordination of care (as documented) at patient's floor/unit and/or counseling patient: Internal Medicine: Result - Labs CBC & Chem 7: 07/07/18 05:13 07/07/18 05:13 Labs: Short CBC 07/07/18 Range/Units 05:13 WBC 15.2 H (4.3-11.1) K/mcL Hgb 11.6 (11.5-15.4) g/dL Hct 35.1 L (35.3-44.9) % Plt Count 226 (140-400) K/mcL Neutrophils # 12.7 H (1.6-8.9) K/mcL BMP 07/07/18 05:13 Sodium 138 Potassium 3.6 Chloride 101 Carbon Dioxide 29 BUN 21 H Creatinine 0.46 L Glucose 160 H Calcium 8.4 L - ABG Interpretation ABG results: ABG ABG pH 7.33 pH Units (7.32-7.45) 07/05/18 04:28 ABG pCO2 54 mmHg (35-45) H 07/05/18 04:28 ABG pO2 78 mmHg (85-104) L 07/05/18 04:28 ABG O2 Saturation 94 % (95-98) L 07/05/18 04:28 PT/INR, D-dimer PT 20.2 Seconds (9.4-12.1) H 07/02/18 14:29 Consult Discharge Plan - Plan Referrals: Jad Rodarte DO [Primary Care Provider] - (2) CAP (community acquired pneumonia) Qualifiers: Laterality: left Lung location: lower lobe of lung Qualified Code(s): J18.1 - Lobar pneumonia, unspecified organism (3) Sepsis Qualifiers: Sepsis type: sepsis due to unspecified organism Qualified Code(s): A41.9 - Sepsis, unspecified organism (7) Chronic pain Qualifiers: Chronic pain type: other chronic pain Qualified Code(s): G89.29 - Other chronic pain
[2018-07-08 03:30] LABS: Alanine Aminotransferase 12 Units/L (7-52); Albumin 2.2 g/dL (3.5-5.7); Albumin/Globulin Ratio 0.9 (1.1-2.2); Alkaline Phosphatase 39 Units/L (34-104); Aspartate Amino Transferase 11 Units/L (13-39); BUN/Creatinine Ratio 44 (6-26); Bilirubin,Total 0.3 mg/dL (0.3-1.0); Blood Urea Nitrogen 19 mg/dL (6-20); Calcium 7.8 mg/dL (8.6-10.3); Carbon Dioxide 32 mEq/L (23-29); Chloride 105 mEq/L (98-107); Globulin 2.5 g/dL (2.4-3.5); Glucose 183 mg/dL (70-105); Osmolality,Calculated 299 (280-300); Potassium 3.9 mEq/L (3.5-5.1); Sodium 141 mEq/L (136-145); Total Protein 4.7 g/dL (6.4-8.9); eGFR For Non-African Americans > 60 (> 60)
[2018-07-08] MEDS: Ipratropium/Albuterol Neb 3 ML IH SCH ×4 (04:01→21:56)
[2018-07-08] MEDS: *HR* Heparin 5,000 UNIT/ML VIAL SQ SCH ×3 (04:34→20:17)
[2018-07-08] MEDS: *HR* OxyCODONE/APAP 5/325 TABLET PO PRN ×5 (04:35→20:18)
[2018-07-08] MEDS: MethylPREDNISolone 40 MG/ML VIAL IVP SCH ×3 (08:35→23:26)
[2018-07-08] MEDS: Nicotine 21 MG PATCH.TD24 TD SCH (08:37)
[2018-07-08] MEDS: Insulin LISPRO 300 UNITS/3 ML VIAL SQ SCH ×3 (08:38→16:38)
--- NOTE | 2018-07-08 08:57 | Internal Med Progress Note ---
Hospitalist Progress Note - Encounter Date of Encounter: 07/08/18 Time of Encounter: 11:00 - Subjective Interval History: Patient presented with a 2 day history of rib pain with cough and shortness of breath and found to have sepsis secondary to pneumonia with imaging revealing left upper lobe/left lower lobe infiltrate. Patient's hypoxic respiratory failure continued to worsen and repeat chest x-ray showed worsening pneumonia and patient subsequently transferred to the ICU for critical care management where she was intubated. Patient subsequently found to have MRSA pneumonia has been treated with IV vancomycin and subsequently extubated and transferred from ICU back to medical surgical floor for further management. - Exam Vitals: Temp Pulse Resp BP Pulse Ox 98.7 F 79 18 94/57 95 07/08/18 07:37 07/08/18 07:37 07/08/18 07:37 07/08/18 07:37 07/08/18 07:37 Exam: Gen.: Mild distress, alert and oriented 3 ENT: Mucosal membranes moist Respiratory: Lungs are clear to auscultation bilaterally without any wheezing rhonchi or rales Cardiovascular: Normal S1 and S2 without any murmurs rubs or gallops; tachycardic Abdomen: Soft, nontender and nondistended with positive bowel sounds Extremities: No lower extremity edema Skin: Normal color - Assessment and Plan (1) Acute respiratory failure with hypoxia Current Visit: Yes Status: Acute Assessment and Plan: Patient with acute hypoxic respiratory failure requiring increased amounts of s upplemental oxygenation Patient was subsequently transferred to ICU and was intubated; patient extubated on 07/05/18 and was placed O2 sats on high flow nasal cannula O2 supplementation has been weaned down to 3 L of nasal cannula Will continue scheduled DuoNeb nebs and IV Solu-Medrol; management for pneumonia as below (2) CAP (community acquired pneumonia) Current Visit: Yes Status: Acute Assessment and Plan: Patient found to have MRSA pneumonia on sputum cultures. Will continue day 5 of IV vancomycin (3) Sepsis Current Visit: Yes Status: Resolved Assessment and Plan: Secondary to and management as above (4) Tachycardia Current Visit: Yes Status: Acute Assessment and Plan: Multifactorial including sepsis above Will consider a low dose beta april if needed (5) Pulmonary nodules Current Visit: Yes Status: Acute Assessment and Plan: Patient also noted to have multiple pulmonary nodules on CTPA Patient with significant medical history of being a 35 pack year smoker She will need to follow-up as an outpatient and to [address] of chest (6) Smoker Current Visit: Yes Status: Acute Assessment and Plan: Patient is a 35 pack year smoker interested in quitting Will offer nicotine replacement (7) Chronic pain Current Visit: Yes Status: Acute Assessment and Plan: Continue patient's home dose of Cymbalta and Mobic in addition to Lyrica DVT Prophylaxis: Heparin subcutaneous - Time Spent with Patient Total time spent is greater than 50% in coordination of care (as documented) at patient's floor/unit and/or counseling patient: Internal Medicine: Result - Labs CBC & Chem 7: 07/08/18 02:52 07/08/18 02:54 Labs: BMP 07/08/18 02:54 Sodium 141 Potassium 3.9 Chloride 105 Carbon Dioxide 32 H BUN 19 Creatinine 0.43 L Glucose 183 H Calcium 7.8 L Liver Function 07/08/18 Range/Units 02:54 Total Bilirubin 0.3 (0.3-1.0) mg/dL AST 11 L (13-39) Units/L ALT 12 (7-52) Units/L Alkaline Phosphatase 39 (34-104) Units/L Albumin 2.2 L (3.5-5.7) g/dL - ABG Interpretation ABG results: ABG ABG pH 7.33 pH Units (7.32-7.45) 07/05/18 04:28 ABG pCO2 54 mmHg (35-45) H 07/05/18 04:28 ABG pO2 78 mmHg (85-104) L 07/05/18 04:28 ABG O2 Saturation 94 % (95-98) L 07/05/18 04:28 PT/INR, D-dimer PT 20.2 Seconds (9.4-12.1) H 07/02/18 14:29 Consult Discharge Plan - Plan Referrals: Jad Rodarte DO [Primary Care Provider] - 07/18/18 1:00 pm (2) CAP (community acquired pneumonia) Qualifiers: Laterality: left Lung location: lower lobe of lung Qualified Code(s): J18.1 - Lobar pneumonia, unspecified organism (3) Sepsis Qualifiers: Sepsis type: sepsis due to unspecified organism Qualified Code(s): A41.9 - Se psis, unspecified organism (7) Chronic pain Qualifiers: Chronic pain type: other chronic pain Qualified Code(s): G89.29 - Other chronic pain
[2018-07-08 09:19] LABS: Basophils % 0.2 %; Hematocrit 33.3 % (35.3-44.9); Hemoglobin 10.7 g/dL (11.5-15.4); Immature Granulocytes % 6.5 % (0-4); Lymphocytes % 6.8 %; Mean Corpuscular HGB Conc 32.1 g/dL (31.6-35.5); Mean Corpuscular Hemoglobin 29.1 pg (28.0-33.3); Mean Corpuscular Volume 90.5 fL (83.0-100.0); Mean Platelet Volume 11.4 fL (9.4-12.4); Monocytes # 0.8 K/mcL (0.0-1.3); Monocytes % 4.7 %; Neutrophils # 13.8 K/mcL (1.6-8.9); Platelet Count 244 K/mcL (140-400); Red Blood Count 3.68 M/mcL (3.82-4.97); Red Cell Distribution Width 14.6 % (11.5-14.5); Segmented Neutrophils % 81.8 %
[2018-07-08 09:23] LABS: Lymphocytes # 1.2 K/mcL (0.6-4.6)
[2018-07-08 10:06] LABS: Platelet Estimate Normal (Normal)
[2018-07-08] MEDS: Budesonide/Formoterol 160/4.5 1 PUFF INH IH SCH ×2 (10:55→21:56)
[2018-07-08] MEDS ORDERED: *HR* Heparin 5,000 UNIT/ML VIAL ONE (19:56)
[2018-07-09] MEDS: Ipratropium/Albuterol Neb 3 ML IH SCH ×4 (03:30→21:54)
[2018-07-09] MEDS: *HR* Heparin 5,000 UNIT/ML VIAL SQ SCH ×3 (05:48→20:55)
[2018-07-09] MEDS: Nicotine 21 MG PATCH.TD24 TD SCH (08:20)
[2018-07-09] MEDS: *HR* OxyCODONE/APAP 5/325 TABLET PO PRN ×4 (08:20→20:56)
[2018-07-09] MEDS: Insulin LISPRO 300 UNITS/3 ML VIAL SQ SCH ×3 (08:21→16:55)
[2018-07-09] MEDS: predniSONE 20 MG TABLET PO SCH (09:11)
[2018-07-09 09:39] LABS: BUN/Creatinine Ratio 35 (6-26); Blood Urea Nitrogen 14 mg/dL (6-20); eGFR For Non-African Americans > 60 (> 60)
--- NOTE | 2018-07-09 10:28 | Internal Med Progress Note ---
Hospitalist Progress Note - Encounter Date of Encounter: 07/09/18 Time of Encounter: 10:27 - Subjective Interval History: 52-year-old female who is admitted and being managed for sepsis secondary to MRSA pneumonia status post extubation with acute hypoxic respiratory failure. Oxygen dependent. She has no new complains this mrn, she is afebrile, leukocytosis is same, labs from this mrn show worsening leukocytosis Patient is however making significant clinical improvement, leukocytosis may be due to use of steroids. - Exam Vitals: Temp Pulse Resp BP Pulse Ox 97.6 F 75 20 131/62 98 07/09/18 07:43 07/09/18 07:43 07/09/18 07:43 07/09/18 07:43 07/09/18 08:09 Exam: Gen.: No distress, alert and oriented 3 ENT: Mucosal membranes moist, normal neck inspection Respiratory: Lungs are clear to auscultation bilaterally without any wheezing rhonchi or rales Cardiovascular: Normal S1 and S2 without any murmurs rubs or gallops; tachycardic Abdomen: Soft, nontender and nondistended with positive bowel sounds Extremities: No lower extremity edema Skin: Normal color - Assessment and Plan (1) CAP (community acquired pneumonia) Current Visit: Yes Status: Acute Assessment and Plan: Sputum culture with MRSA Continue vancomycin 6 We will consider switching to arouse from a.m Monitor vanco trough (2) Sepsis Current Visit: Yes Status: Resolved Assessment and Plan: resolved Afebreile Sputum culture with MRSA Blood culture negative Continue vancomycin-Day 6 Monitor CBC (3) Smoker Current Visit: Yes Status: Chronic Assessment and Plan: Patient is a 35 pack year smoker interested in quitting Encouraged cessation (4) Chronic pain Current Visit: Yes Status: Chronic Assessment and Plan: Continue patient's home dose of Cymbalta and Mobic in addition to Lyrica (5) Pulmonary nodules Current Visit: Yes Status: Acute Assessment and Plan: Patient also noted to have multiple pulmonary nodules on CTPA Patient with significant medical history of being a 35 pack year smoker She will need to follow-up as an outpatient and to [address] of chest (6) Acute respiratory failure with hypoxia Current Visit: Yes Status: Acute Assessment and Plan: Patient with acute hypoxic respiratory failure requiring increased amounts of supplemental oxygenation Patient was subsequently transferred to ICU and was intubated; patient extubated on 07/05/18 and was placed O2 sats on high flow nasal cannula Now on nasal cannula, continue to wean as tolerated (7) Tachycardia Current Visit: Yes Status: Acute Assessment and Plan: Resolved DVT Prophylaxis: Heparin subcutaneous - Time Spent with Patient Total time spent is greater than 50% in coordination of care (as documented) at patient's floor/unit and/or counseling patient: Plan of Care Discussed with: patient Internal Medicine: Result - Labs CBC & Chem 7: 07/09/18 11:45 07/09/18 08:05 Labs: BMP 07/09/18 08:05 BUN 14 Creatinine 0.40 L - ABG Interpretation ABG results: ABG ABG pH 7.33 pH Units (7.32-7.45) 07/05/18 04:28 ABG pCO2 54 mmHg (35-45) H 07/05/18 04:28 ABG pO2 78 mmHg (85-104) L 07/05/18 04:28 ABG O2 Saturation 94 % (95-98) L 07/05/18 04:28 PT/INR, D-dimer PT 20.2 Seconds (9.4-12.1) H 07/02/18 14:29 Consult Discharge Plan - Plan Referrals: Jad Rodarte DO [Primary Care Provider] - 07/18/18 1:00 pm (1) CAP (community acquired pneumonia) Qualifiers: Laterality: left Lung location: lower lobe of lung Qualified Code(s): J18.1 - Lobar pneumonia, unspecified organism (2) Sepsis Qualifiers: Sepsis type: sepsis due to unspecified organism Qualified Code(s): A41.9 - Sepsis, unspecified organism (4) Chronic pain Qualifiers: Chronic pain type: other chronic pain Qualified Code(s): G89.29 - Other chronic pain
[2018-07-09] MEDS: Budesonide/Formoterol 160/4.5 1 PUFF INH IH SCH ×2 (10:57→21:54)
[2018-07-09] MEDS ORDERED: traZODone 50 MG TABLET PO PRN (11:46)
[2018-07-09 12:08] LABS: Hematocrit 34.7 % (35.3-44.9); Hemoglobin 11.3 g/dL (11.5-15.4); Mean Corpuscular HGB Conc 32.6 g/dL (31.6-35.5); Mean Corpuscular Hemoglobin 28.8 pg (28.0-33.3); Mean Corpuscular Volume 88.3 fL (83.0-100.0); Mean Platelet Volume 10.7 fL (9.4-12.4); Platelet Count 282 K/mcL (140-400); Red Blood Count 3.93 M/mcL (3.82-4.97)
[2018-07-09 12:34] LABS: Lymphocytes # 1.4 K/mcL (0.6-4.6); Monocytes # 0.7 K/mcL (0.0-1.3); Neutrophils # 15.8 K/mcL (1.6-8.9); Platelet Estimate Normal (Normal)
[2018-07-09 12:57] LABS: BUN/Creatinine Ratio 40 (6-26); Blood Urea Nitrogen 17 mg/dL (6-20); Calcium 7.6 mg/dL (8.6-10.3); Carbon Dioxide 29 mEq/L (23-29); Chloride 104 mEq/L (98-107); Glucose 165 mg/dL (70-105); Osmolality,Calculated 289 (280-300); Potassium 3.4 mEq/L (3.5-5.1); Sodium 137 mEq/L (136-145); eGFR For Non-African Americans > 60 (> 60)
[2018-07-10] MEDS: Ipratropium/Albuterol Neb 3 ML IH SCH ×4 (04:07→22:45)
[2018-07-10] MEDS: *HR* OxyCODONE/APAP 5/325 TABLET PO PRN ×2 (05:05→15:30)
[2018-07-10] MEDS: *HR* Heparin 5,000 UNIT/ML VIAL SQ SCH ×3 (05:06→21:33)
[2018-07-10 05:36] LABS: Hematocrit 34.1 % (35.3-44.9); Hemoglobin 11.4 g/dL (11.5-15.4); Mean Corpuscular HGB Conc 33.4 g/dL (31.6-35.5); Mean Corpuscular Hemoglobin 29.3 pg (28.0-33.3); Mean Corpuscular Volume 87.7 fL (83.0-100.0); Mean Platelet Volume 10.7 fL (9.4-12.4); Platelet Count 279 K/mcL (140-400); Red Blood Count 3.89 M/mcL (3.82-4.97); Red Cell Distribution Width 13.7 % (11.5-14.5)
[2018-07-10 05:56] LABS: BUN/Creatinine Ratio 27 (6-26); Blood Urea Nitrogen 11 mg/dL (6-20); Calcium 7.5 mg/dL (8.6-10.3); Carbon Dioxide 30 mEq/L (23-29); Chloride 103 mEq/L (98-107); Glucose 85 mg/dL (70-105); Osmolality,Calculated 283 (280-300); Potassium 3.1 mEq/L (3.5-5.1); Sodium 137 mEq/L (136-145); eGFR For Non-African Americans > 60 (> 60)
[2018-07-10 06:55] LABS: Lymphocytes # 2.9 K/mcL (0.6-4.6); Monocytes # 0.4 K/mcL (0.0-1.3); Neutrophils # 14.6 K/mcL (1.6-8.9); Platelet Estimate Normal (Normal); Reactive Lymphocytes Present (Not Present); Toxic Granulation Present (Not Present)
[2018-07-10] MEDS: predniSONE 20 MG TABLET PO SCH (08:44)
[2018-07-10] MEDS: Nicotine 21 MG PATCH.TD24 TD SCH (08:44)
[2018-07-10] MEDS: Doxycycline 100 MG CAPSULE PO SCH ×2 (08:45→21:33)
[2018-07-10] MEDS: Insulin LISPRO 300 UNITS/3 ML VIAL SQ SCH ×3 (08:49→17:37)
[2018-07-10] MEDS: Budesonide/Formoterol 160/4.5 1 PUFF INH IH SCH ×2 (10:45→22:45)
[2018-07-10] MEDS ORDERED: Aminoglycoside Consult 1 EACH MC ONE (12:32)
--- NOTE | 2018-07-10 12:49 | Internal Med Progress Note ---
Hospitalist Progress Note - Encounter Date of Encounter: 07/10/18 Time of Encounter: 12:45 - Subjective Interval History: 52-year-old female who is admitted and being managed for sepsis secondary to MRSA pneumonia status post extubation with acute hypoxic respiratory failure. Oxygen dependent. She is seen and examined at the bedside She has no new complaints She has remained afebrile, leukocytosis slowly improving She still oxygen dependent and we will qualified for oxygen today. She is stable to be transferred out of the unit today if necessary - Exam Vitals: Temp Pulse Resp BP Pulse Ox 98.7 F 110 20 109/76 88 07/10/18 11:10 07/10/18 11:10 07/10/18 11:10 07/10/18 11:10 07/10/18 11:49 Exam: Gen.: No distress, alert and oriented 3 ENT: Mucosal membranes moist, normal neck inspection Respiratory: Lungs are clear to auscultation bilaterally without any wheezing rhonchi or rales Cardiovascular: Normal S1 and S2 without any murmurs rubs or gallops; t achycardic Abdomen: Soft, non-tender and non-distended with positive bowel sounds Extremities: No lower extremity edema Skin: Normal color - Assessment and Plan (1) CAP (community acquired pneumonia) Current Visit: Yes Status: Acute Assessment and Plan: Sputum culture with MRSA Received 6 days of avcnomycin Switch to doxycycline-day 1, total 7 day of antibiotics, will continut through day 10 (2) Sepsis Current Visit: Yes Status: Resolved Assessment and Plan: resolved Afebreile Sputum culture with MRSA Blood culture negative Continue to monitor WBC (3) Smoker Current Visit: Yes Status: Chronic Assessment and Plan: Patient is a 35 pack year smoker interested in quitting Encouraged cessation (4) Chronic pain Current Visit: Yes Status: Chronic Assessment and Plan: Continue patient's home dose of Cymbalta and Mobic in addition to Lyrica (5) Pulmonary nodules Current Visit: Yes Status: Acute Assessment and Plan: Patient also noted to have multiple pulmonary nodules on CTPA Patient with significant medical history of being a 35 pack year smoker She will need to follow-up as an outpatient and to [address] of chest (6) Acute respiratory failure with hypoxia Current Visit: Yes Status: Acute Assessment and Plan: Patient with acute hypoxic respiratory failure requiring increased amounts of supplemental oxygenation Patient was subsequently transferred to ICU and was intubated; patient extubated on 07/05/18 and was placed O2 sats on high flow nasal cannula Now on nasal cannula, continue to wean as tolerated Qualify for home O2 today (7) Tachycardia Current Visit: Yes Status: Resolved Assessment and Plan: Resolved DVT Prophylaxis: Heparin subcutaneous - Time Spent with Patient Total time spent is greater than 50% in coordination of care (as documented) at patient's floor/unit and/or counseling patient: Plan of Care Discussed with: patient Internal Medicine: Result - Labs CBC & Chem 7: 07/10/18 05:10 07/10/18 05:10 Labs: Short CBC 07/10/18 Range/Units 05:10 WBC 17.8 H (4.3-11.1) K/mcL Hgb 11.4 L (11.5-15.4) g/dL Hct 34.1 L (35.3-44.9) % Plt Count 279 (140-400) K/mcL Neutrophils # 14.6 H (1.6-8.9) K/mcL BMP 07/09/18 07/10/18 11:45 05:10 Sodium 137 137 Potassium 3.4 L 3.1 L Chloride 104 103 Carbon Dioxide 29 30 H BUN 17 11 Creatinine 0.42 L 0.41 L Glucose 165 H 85 Calcium 7.6 L 7.5 L - ABG Interpretation ABG results: ABG ABG pH 7.33 pH Units (7.32-7.45) 07/05/18 04:28 ABG pCO2 54 mmHg (35-45) H 07/05/18 04:28 ABG pO2 78 mmHg (85-104) L 07/05/18 04:28 ABG O2 Saturation 94 % (95-98) L 07/05/18 04:28 PT/INR, D-dimer PT 20.2 Seconds (9.4-12.1) H 07/02/18 14:29 Consult Discharge Plan - Plan Referrals: Jad Rodarte DO [Primary Care Provider] - 07/18/18 1:00 pm (1) CAP (community acquired pneumonia) Qualifiers: Laterality: left Lung location: lower lobe of lung Qualified Code(s): J18.1 - Lobar pneumonia, unspecified organism (2) Sepsis Qualifiers: Sepsis type: sepsis due to unspecified organism Qualified Code(s): A41.9 - Sepsis, unspecified organism (4) Chronic pain Qualifiers: Chronic pain type: other chronic pain Qualified Code(s): G89.29 - Other chronic pain
[2018-07-11] MEDS: *HR* OxyCODONE/APAP 5/325 TABLET PO PRN ×2 (04:21→07:46)
[2018-07-11] MEDS: Ipratropium/Albuterol Neb 3 ML IH SCH ×2 (04:29→10:25)
[2018-07-11 04:40] LABS: Basophils # 0.1 K/mcL (0.0-0.2); Basophils % 0.3 %; Eosinophils # 0.1 K/mcL (0.0-0.6); Eosinophils % 0.3 %; Hematocrit 34.3 % (35.3-44.9); Hemoglobin 11.4 g/dL (11.5-15.4); Immature Granulocytes % 3.9 % (0-4); Lymphocytes # 1.7 K/mcL (0.6-4.6); Lymphocytes % 9.2 %; Mean Corpuscular HGB Conc 33.2 g/dL (31.6-35.5); Mean Corpuscular Hemoglobin 28.8 pg (28.0-33.3); Mean Corpuscular Volume 86.6 fL (83.0-100.0); Mean Platelet Volume 10.3 fL (9.4-12.4); Monocytes # 0.9 K/mcL (0.0-1.3); Monocytes % 4.8 %; Neutrophils # 15.1 K/mcL (1.6-8.9); Platelet Count 308 K/mcL (140-400); Red Blood Count 3.96 M/mcL (3.82-4.97); Red Cell Distribution Width 13.7 % (11.5-14.5); Segmented Neutrophils % 81.5 %
[2018-07-11 05:04] LABS: BUN/Creatinine Ratio 25 (6-26); Blood Urea Nitrogen 9 mg/dL (6-20); Calcium 7.6 mg/dL (8.6-10.3); Carbon Dioxide 28 mEq/L (23-29); Chloride 102 mEq/L (98-107); Glucose 112 mg/dL (70-105); Osmolality,Calculated 281 (280-300); Potassium 3.3 mEq/L (3.5-5.1); Sodium 136 mEq/L (136-145); eGFR For Non-African Americans > 60 (> 60)
[2018-07-11] MEDS: *HR* Heparin 5,000 UNIT/ML VIAL SQ SCH (05:34)
[2018-07-11 07:22] VITALS: BP 94/61
[2018-07-11] MEDS: Insulin LISPRO 300 UNITS/3 ML VIAL SQ SCH (07:38)
[2018-07-11] MEDS ORDERED: Isovue-370 500 ML INFUS..BTL IV ONE (07:43)
[2018-07-11] MEDS: Nicotine 21 MG PATCH.TD24 TD SCH (07:44)
[2018-07-11] MEDS: Doxycycline 100 MG CAPSULE PO SCH (07:45)
[2018-07-11] MEDS ORDERED: predniSONE 10 MG TABLET PO SCH (09:00)
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
--- NOTE | 2018-07-11 09:14 | Internal Med Progress Note ---
Hospitalist Progress Note - Encounter Date of Encounter: 07/11/18 Time of Encounter: 09:11 - Subjective Interval History: 52-year-old female who is admitted and being managed for sepsis secondary to MRSA pneumonia status post extubation with acute hypoxic respiratory failure. Oxygen dependent. She is seen and examined at the bedside She has no new complaints She has remained afebrile, leukocytosis slowly improving She still oxygen dependent and require about 4 L O2 On 07/10 a repar CXR was ordered due to her increased O2 requirement and SOB on exertion-showed worsening PNA , suspected mass Chest CT with contrast done this a.m 07/11 showed worsening PNA with cavitary lesions , mediastinal adenopathy and new small pleural effusion (patient is kno wn to have MRSA PNA) Patient had received Vancomycin for 4 days, switched to doxycycline 07/10. We will consult pulmonology and resume vancomycin at this time Patient is on SNRI and cannot receive Zyvox at this time Plan of care was discussed with the patient, who is threatening to leave AMA - Exam Vitals: Temp Pulse Resp BP Pulse Ox 98.5 F 89 18 94/61 88 07/11/18 07:20 07/11/18 07:53 07/11/18 07:20 07/11/18 07:20 07/11/18 07:48 - Assessment and Plan (1) CAP (community acquired pneumonia) Current Visit: Yes Status: Acute (2) Sepsis Current Visit: Yes Status: Resolved (3) Smoker Current Visit: Yes Status: Chronic (4) Chronic pain Current Visit: Yes Status: Chronic (5) Pulmonary nodules Current Visit: Yes Status: Acute (6) Acute respiratory failure with hypoxia Current Visit: Yes Status: Acute (7) Tachycardia Current Visit: Yes Status: Resolved - Time Spent with Patient Total time spent is greater than 50% in coordination of care (as documented) at patient's floor/unit and/or counseling patient: Internal Medicine: Result - Labs CBC & Chem 7: 07/11/18 04:25 07/11/18 04:25 Labs: Short CBC 07/11/18 Range/Units 04:25 WBC 18.4 H (4.3-11.1) K/mcL Hgb 11.4 L (11.5-15.4) g/dL Hct 34.3 L (35.3-44.9) % Plt Count 308 (140-400) K/mcL Neutrophils # 15.1 H (1.6-8.9) K/mcL BMP 07/11/18 04:25 Sodium 136 Potassium 3.3 L Chloride 102 Carbon Dioxide 28 BUN 9 Creatinine 0.36 L Glucose 112 H Calcium 7.6 L - ABG Interpretation ABG results: ABG ABG pH 7.33 pH Units (7.32-7.45) 07/05/18 04:28 ABG pCO2 54 mmHg (35-45) H 07/05/18 04:28 ABG pO2 78 mmHg (85-104) L 07/05/18 04:28 ABG O2 Saturation 94 % (95-98) L 07/05/18 04:28 PT/INR, D-dimer PT 20.2 Seconds (9.4-12.1) H 07/02/18 14:29 - Impressions Impressions Chest X-Ray 07/10/18 16:11 IMPRESSION: Persistent consolidation involving the left upper lung, suggestive of complicated pneumonia or postobstructive opacification secondary to underlying mass. D/ / Gian Thornton / Gian Thornton Interpreting Provider: Gian Thornton Chest CT 07/11/18 07:43 IMPRESSION: 1. Worsening extensive left upper lobe airspace consolidation which now appears somewhat expansile and also extends to involve the anterior segment. It also appears more solid with numerous cavitary areas. 2. Interval development of mediastinal adenopathy with left hilar and para-aortic lymph nodes, largest in the para-aortic area measuring 2.2 x 1.3 cm. There is also new small left pleural effusion. 3. Stable several scattered solid noncalcified pulmonary nodules up to 1 cm in size. D/ / Dajuan Thrasher MD / Dajuan Thrasher MD Interpreting Provider: Dajuan Thrasher MD Consult Discharge Plan - Plan Referrals: Jad Rodarte DO [Primary Care Provider] - 07/18/18 1:00 pm (1) CAP (community acquired pneumonia) Qualifiers: Laterality: left Lung location: lower lobe of lung Qualified Code(s): J18.1 - Lobar pneumonia, unspecified organism (2) Sepsis Qualifiers: Sepsis type: sepsis due to unspecified organism Qualified Code(s): A41.9 - Sepsis, unspecified organism (4) Chronic pain Qualifiers: Chronic pain type: other chronic pain Qualified Code(s): G89.29 - Other chronic pain
--- NOTE | 2018-07-11 09:49 | Discharge Summary ---
- NOTES TO OUTPATIENT PROVIDER Notes to Outpatient Provider: Patient had acute hypoxic resp failrue due to MRSA PNA which was worsening at the time she left AMA . She was discharged with doxycyclinw for 14 mroe days, as well as prednisone tapet. She has suspicious pulm nodules and based on her CT findings, she needs a repeat CT in 3 months. Follow up with pulmonology is recommended. She is also discharged with home O2 Orders not resulted at time of discharge: Pending orders 07/04/18 12:56 AFB Culture, Respiratory [TB] Routine AFB Smear [TB] Routine Fungal Culture [MYC] Routine 07/10/18 00:45 Arterial Blood Gas DAILY 07/11/18 00:45 Arterial Blood Gas DAILY 07/12/18 00:45 Arterial Blood Gas DAILY 07/12/18 04:00 Chem 7 [Basic Metabolic Panel] AM 0400 Complete Blood Count [HEME] AM 0400 07/12/18 09:00 Vancomycin,Trough Timed 07/13/18 00:45 Arterial Blood Gas DAILY 07/13/18 04:00 Chem 7 [Basic Metabolic Panel] AM 0400 Complete Blood Count [HEME] AM 0400 Date of Encounter: 07/11/18 Time of Encounter: 09:48 - Discharge Diagnosis (1) CAP (community acquired pneumonia) Priority: Primary Status: Acute Assessment and Plan: Sputum culture with MRSA Received 6 days of avcnomycin Switched to doxycycline-day 1, total 7 day of antibiotics Discharged on same , for [address] 07/11 showed worsening cavitary PNA. patient refused further review or treatment and left AMA Qualifiers: Laterality: left Lung location: lower lobe of lung Qualified Code(s): J18.1 - Lobar pneumonia, unspecified organism (2) Sepsis Priority: Primary Status: Resolved Assessment and Plan: resolved Afebrile Sputum culture with MRSA Blood culture negative Qualifiers: Sepsis type: sepsis due to unspecified organism Qualified Code(s): A41.9 - Sepsis, unspecified organism (3) Smoker Priority: Secondary Status: Chronic (4) Chronic pain Priority: Secondary Status: Chronic Qualifiers: Chronic pain type: other chronic pain Qualified Code(s): G89.29 - Other chronic pain (5) Pulmonary nodules Priority: Secondary Status: Chronic (6) Acute respiratory failure with hypoxia Priority: Primary Status: Acute (7) Tachycardia Priority: Primary Status: Resolved Hospital course: Ms. Ibrahim is a 52 year old female who was admitted to the Intensive care unit, and intubated for acute hypoxic resp failure secondary to MRSA PNA and sepsis patient extubated on 07/05/18 and was placed O2 sats on high flow nasal cannula She has remained afebrile, leukocytosis persistent but stable, afebrile, requiring 4-5 L of O2 and still short of breath On 07/10 a repar CXR was ordered due to her increased O2 requirement and SOB on exertion-showed worsening PNA , suspected mass Chest CT with contrast done this a.m 07/11 showed worsening PNA with cavitary lesions , mediastinal adenopathy and new small pleural effusion (patient is known to have MRSA PNA) Patient had received Vancomycin for 4 days, switched to doxycycline 07/10. We consulted pulmonology but patient refused further evaluation and decided to leave AMA despite education about not being medically cleared. She also has pulm nodules and with a heavy hx of smoking, educated on need for follow up imaging. Patient is on SNRI and cannot receive Zyvox at this time She will be given scripts for home O2, Doxycycline,prednisone taper, to continue her MDIs and encouraged to stop smoking Follow up with PCP and Pulmonology Discharge discussed with: patient, family, nurse Time spent discussing smoking cessation with patient: 3 to 10 minutes (3 mins spent on tobacco cessation counselling) - Time Spent with Patient Total time spent providing and/or coordinating discharge services: Greater than 30 minutes (45 mins spent on education, consultation, chart review, med rec and documentation) - Discharge Medications Prescriptions: Doxycycline 100 mg PO BID #28 capsule Lidocaine Patch [Lidoderm 5% patch] 1 each TP Q24H #20 adh..patch Omeprazole [PriLOSEC] 20 mg PO DAILY@0730 #30 capsule. predniSONE [PredniSONE] 20 mg PO DAILY #20 tablet Home Medications: Albuterol Sulfate [Ventolin Hfa] 2 puff IH Q4H PRN 07/02/18 [History] DULoxetine [Cymbalta] 30 mg PO DAILY 07/02/18 [History] Mometasone/Formoterol [Dulera 200 Mcg/5 Mcg Inhaler] 2 puff IH QID PRN 07/02/18 [History] Pregabalin [Lyrica] 225 mg PO BID 07/02/18 [History] Trazodone HCl 100 mg PO HS PRN 07/02/18 [History] Doxycycline 100 mg PO BID #28 capsule 07/11/18 [Rx] Lidocaine Patch [Lidoderm 5% patch] 1 each TP Q24H #20 adh..patch 07/11/18 [Rx] Nicotine Patch [Nicoderm] 21 mg TD DAILY patch.td24 07/11/18 [Rx] Omeprazole [PriLOSEC] 20 mg PO DAILY@0730 #30 capsule.dr 07/11/18 [Rx] predniSONE [PredniSONE] 20 mg PO DAILY #20 tablet 07/11/18 [Rx] Allergies/Adverse Reactions: Allergy/AdvReac Type Severity Reaction Status Date / Time azithromycin [From Zithromax] Allergy Difficulty Verified 07/02/18 21:08 Breathing aspirin [ASA] AdvReac Hives Verified 07/02/18 14:13 caffeine AdvReac Fever Verified 07/02/18 14:13 Date of admission: 07/02/18 19:25 Primary care physician: Jad Rodarte DO Consults: 07/03/18 14:45 Consult to Pulmonology [CONS] Routine Consulting Provider: [facility] [place] Reason for Consult: Acute respiratory failure, pneumonia versus hemorrhage on imaging Call Completed: Yes 07/03/18 15:31 Consult to Invasive Line Access Team [CONS] Routine Reason for Consult: limited access Line Type: EPIV 07/11/18 09:47 Consult to Pulmonology [CONS] Routine Consulting Provider: [facility] [place] Reason for Consult: Worsening MRSA pneumonia Call Completed: Yes Discharging clinician: Abel Waterman Anticipated date of discharge: 07/11/18 - Constitutional Vitals: Temp Pulse Resp BP Pulse Ox 98.5 F 89 18 94/61 88 07/11/18 07:20 07/11/18 07:53 07/11/18 07:20 07/11/18 07:20 07/11/18 07:48 General appearance: Present: A&O X 3, no acute distress Exam: Gen.: No distress, alert and oriented 3 ENT: Mucosal membranes moist, normal neck inspection Respiratory: Lungs are clear to auscultation bilaterally without any wheezing rhonchi or rales Cardiovascular: Normal S1 and S2 without any murmurs rubs or gallops; tachycardic Abdomen: Soft, non-tender and non-distended with positive bowel sounds Extremities: No lower extremity edema Skin: Normal color - Patient Status Disposition: Left Against Medical Advice Condition: Fair Functional capacity at discharge: independent ambulation Overall status at discharge: patient is progressing back to baseline - Discharge Instructions Instructions: Chronic Obstructive Pulmonary Disease (DC), Against Medical Advice (DC) Follow Up With: Jad Rodarte DO [Primary Care Provider] - 07/18/18 1:00 pm - Diet and Activity Activity: wear oxygen at all times Diet: low salt diet
[2018-07-11] MEDS: Budesonide/Formoterol 160/4.5 1 PUFF INH IH SCH (10:25)
== END 2018-07-11 10:25 | disposition left against medical advice (07) | DRG 720 ==
LOC: EMEROOARM 14:08 → SUATTDRO 19:25 → 2ANU 19:25 → ICNU 07-03 22:05 → 2NNU 07-06 15:42
PROVIDERS: ADMIT Internal Medicine; ATTEND Internal Medicine